=== PATIENT | male | born 1990 | race Caucasian/White ===

== ENCOUNTER 2021-05-31 11:17 | Emergency (ER) | payer MEDICAID, SELFPAY ==
--- NOTE | ~2021-05-31 | XR_ITS ---
EXAMINATION: XR ANKLE, RIGHT CLINICAL INFORMATION: Pain and bruising. No injury COMPARISON: None TECHNIQUE: AP, lateral, and mortise views of the right ankle. FINDINGS: The bones and soft tissues are normal. No fracture. Alignment is anatomic. Joint spaces are maintained. There is a small to moderate-sized retrocalcaneal enthesophyte. No joint effusion. XR/XR ankle RT min 3V IMPRESSION: Small to moderate-sized retrocalcaneal enthesophyte. No acute fracture seen.
[2021-05-31 11:21] VITALS: BP 149/69; PULSE 113; RESP 18; TEMP 37; O2SAT 98; BMI 33.9
--- NOTE | 2021-05-31 12:39 | ED.LOWEXIN ---
HPI - Extremity Injury (Lower) General Chief Complaint: Extremity Injury, Lower Stated Complaint: rt ankle pain & swelling Time Seen by Provider: 05/31/21 12:17 Source: patient Mode of arrival: ambulatory Limitations: no limitations History of Present Illness HPI Narrative: 30-year-old male is here today for complaining of right ankle swelling and pain. Patient denies any injury. Patient was placed on hydrochlorothiazide for bilateral lower extremity edema about 6 months ago. He was wearing compression stockings that were put on by the staff at his primary care provider today. Patient reports that he is having hard time walking and bear weight to his right leg. Reports redness and swelling. Patient reports that he had similar symptoms 8 years ago to the same ankle and he was diagnosed with gout. Patient denies any other symptoms. MD complaint: other (Ankle pain and swelling without injury) Severity: similar to previous episodes (Similar episode 8 years ago gout flare up) Related Data Previous Rx's Medication Instructions Recorded cephalexin 500 mg capsule 500 mg PO QID 7 Days #28 cap 05/31/21 doxycycline hyclate 100 mg capsule 100 mg PO BID #14 cap 05/31/21 lisinopril 10 mg tablet 10 mg PO DAILY #10 tab 05/31/21 oxycodone 5 mg tablet 5 mg PO Q4-6H PRN #10 tab 05/31/21 prednisone 20 mg tablet 60 mg PO DAILY 5 Days #15 tab 05/31/21 Allergies Allergy/AdvReac Type Severity Reaction Status Date / Time No Known Allergies Allergy Verified 05/31/21 11:20 Review of Systems Review of Systems: Constitutional : No Weight loss, No Fever, No Chills, No Night Sweats, No Fatigue, No Malaise ENT/Mouth : No Hearing loss, No Ear Pain, No Nasal Congestion, No Sinus Pain, No Hoarseness, No sore throat, No Rhinorrhea, No Swallowing Difficulty Eyes: No Eye Pain, No Swelling, No Redness, No Foreign Body, No Discharge, No Vision Changes Cardiovascular : No Chest Pain, No SOB, No Dyspnea on Exertion, No Orthopnea, No Edema, No Palpitations Respiratory : No Cough, No Sputum, No Wheezing, No Smoke Exposure, No Dyspnea Gastrointestinal : No Nausea, No Vomiting, No Diarrhea, No Constipation, No abdominal Pain, No Hematochezia, No Melena Genitourinary : no irregular bleeding, No Dysuria, No Urinary Frequency, No Hematuria, No Urinary Incontinence, No Urgency, No Flank Pain, No Urinary Flow Changes, No Hesitancy Musculoskeletal : joint pain (right ankle) No Myalgias, Joint Swelling (right ankle swelling and redness) Skin : No Skin Lesions, No rash Neuro : No Weakness, No Numbness, No Paresthesias, No Loss of Consciousness, No Dizziness, No Headache Yes all other systems are reviewed and are negative PMFSH Past Medical History Medical History (Updated 05/31/21 @ 14:01 by Briana Gilliam [facility]) HTN (hypertension) Social History Social History Advance Directives: No Advance Directives Information Provided: No Physical Exam Vital Signs: Vital Signs: Last Vital Signs Temp 98.6 F 05/31/21 11:21 Pulse 113 H 05/31/21 11:21 Resp 18 05/31/21 11:21 BP 149/69 H 05/31/21 11:21 Pulse Ox 98 05/31/21 11:21 Body Mass Index 33.9 Const: General: healthy appearing, no acute distress and well developed Nutritional Appearance: well nourished Orientation/consciousness: patient oriented x3 HENMT: Head: Yes normal to inspection, Yes normocephalic and Yes atraumatic Ears: hearing grossly normal bilaterally Neck: Neck: Yes normal visual inspection, Yes full ROM and Yes trachea midline Thyroid: Thyroid normal Resp: Effort & Inspection: normal respiratory effort Auscultation: clear to auscultation bilaterally Cardio: Rate: regular rate Rhythm: regular rhythm GI: Inspection: Yes normal to inspection and No distended Skin: General skin exam: elasticity normal, turgor normal and dry skin Neuro: General: patient oriented x3 Extrem: Right upper extremity: normal to inspection and normal capillary refill Left upper extremity: normal to inspection, full ROM and normal capillary refill Right lower extremity: normal capillary refill, edema (Ankle) and ankle Details: tenderness, swelling, edema and warmth Course Course Course Narrative: 30-year-old male is here today for complaining of right ankle pain and swelling. Six months ago patient was placed on hydrochlorothiazide for bilateral lower extremity edema. History of gout in the past to the same ankle about 8 years ago. Right ankle swollen tender to touch. Will x-ray, medicated with prednisone and oxycodone. Most likely gout however will rule out septic joint. Patient should stop his hydrochlorothiazide. Reevaluation(s) Reevaluation #1: X-ray negative for osteomyelitis or any fracture. Will send patient home with prednisone and pain management as well as antibiotic. I will send him home with 10 days worth of TONG-inhibitor and he will follow up with his PCP for further management of his lower extremity edema. MDM - Extremity Injury (Lower) Imaging Data Right ankle x-ray: Radiologist's impression: FINDINGS: The bones and soft tissues are normal. No fracture. Alignment is anatomic. Joint spaces are maintained. There is a small to moderate-sized retrocalcaneal enthesophyte. No joint effusion.? Discharge Plan Discharge Clinical Impression: Gout attack Qualifiers: Gout site: ankle Gout etiology: drug-induced Laterality: right Qualified Code(s): M10.271 - Drug-induced gout, right ankle and foot Cellulitis Qualifiers: Site of cellulitis: extremity Site of cellulitis of extremity: lower extremity Laterality: right Qualified Code(s): L03.115 - Cellulitis of right lower limb Patient Disposition: Home, Self-Care Instructions: Cellulitis (ED), Low Purine Diet (ED), Gout (ED) Additional Instructions: You were seen here today for right ankle pain and swelling. You have been taking medication that most likely increased uric acid levels in your blood that caused swelling to your joint. Please take prednisone as directed as well as the antibiotic. Please stop taking hydrochlorothiazide you may start taking lisinopril however you should have your kidney function test done to make sure that you can continue taking that medication to treat your lower extremity edema Prescriptions: New doxycycline hyclate 100 mg capsule 100 mg PO BID Qty: 14 RF: 0 cephalexin 500 mg capsule 500 mg PO QID 7 Days Qty: 28 RF: 0 prednisone 20 mg tablet 60 mg PO DAILY 5 Days Qty: 15 RF: 0 oxycodone 5 mg tablet 5 mg PO Q4-6H PRN (Reason: pain) Qty: 10 RF: 0 lisinopril 10 mg tablet 10 mg PO DAILY Qty: 10 RF: 0 Referrals: Name,MD Ochoa [Primary Care Provider] - 2 days Stand Alone Forms: Work/School Release Interventions: ED Discharge Assessment Last Done: 05/31/21 14:28 Discharge Date/Time: 05/31/21 14:28
[2021-05-31] MEDS: oxyCODONE HCl Immed Release 5 MG TABLET PO (13:19)
[2021-05-31] MEDS: predniSONE 20 MG TABLET 60 MG PO (13:19)
[2021-05-31] MEDS: cephALEXin 500 MG CAPSULE PO (14:08)
== END 2021-05-31 14:28 | disposition home or self-care (01) ==
PROVIDERS: Emergency Provider Emergency Medicine; PCP Internal Medicine Geriatric Medicine
DX: L03.115 Cellulitis of right lower limb (principal); M10.271 Drug-induced gout, right ankle and foot; M25.471 Effusion, right ankle; Z79.899 Other long term (current) drug therapy
CPT/HCPCS: 73610; 99283

== ENCOUNTER 2025-03-25 11:26 | Outpatient (REF) | payer MEDICAID, SELFPAY ==
--- OUTSIDE RECORDS SUMMARY | 2025-03-25 11:57 | XMS_ITS | Encounter Summary ---
Author Organization [facility] Address [address] [place] [address] Phone Care Team Providers Care Travel Med Surg Rn Name Role Phone Kiana Morfin MD Primary Care Provider Encounter Details Date Type Department Care Team (Late st Contact Info) Description 05/01/2017 Conversion Encounter [facility] [place] [address] [place] [address] Social History Tobacco Use Types Packs/Day Years Used Date Smoking Tobacco: Never Assessed Sex and Gender Information Value Date Recorded Sex Assigned at Not on file Legal Sex Male 4:26 PM EDT Gender Identity Not on file Sexual Orientation Not on file documented as of this encounter Plan of Treatment Not on file documented as of this encounter Visit Diagnoses Not on filedocumented in this encounter Care Teams Travel Med Surg Rn Relationship Specialty Start Date End Date Kiana Morfin MD [address] [place] [address] PCP - General 04/25/17 10/30/22 documented as of this encounter
--- OUTSIDE RECORDS SUMMARY | 2025-03-25 11:57 | XMS_ITS | Clinical Summary ---
Author Organization [facility] Address [address] [place] [address] Phone Care Team Providers Care Supervisor Machine Setter Name Role Phone Physician, No Pcp Primary Care Provider Unavaila ble Allergies No known active allergies Medications No known medications Active Problems No known active problems Encounters Date Type Department Care Team Description 12/25/2024 9:51 AM EDT - 12/25/2024 2:10 PM EDT Emergency [facility] Emergency [address] [place] [address] Acute pharyngitis due to infectious mononucleosis (Primary Dx) Discharge Disposition: Home or Self Care from Last 3 Months Social History Tobacco Use Types Packs/Day Years Used Date Smoking Tobacco: Never Assessed Sex and Gender Information Value Date Recorded Sex Assigned at Male 12/25/2024 10:10 AM EDT Legal Sex Male 10:16 AM EST Gender Identity Male 12/25/2024 10:10 AM EDT Sexual Orientation Straight 12/25/2024 10 :10 AM EDT Obstetrics History Last Filed Vital Signs Vital Sign Reading Time Taken Comments Blood Pressure 146/82 12/25/2024 11:32 AM EDT Pulse 105 12/25/2024 11:32 AM EDT Temperature 38.5 C (101.3 F) 12/25/2024 11:32 AM EDT Respiratory Rate 13 12/25/2024 11:32 AM EDT Oxygen Saturation 98% 12/25/2024 11:32 AM EDT Inhaled Oxygen Concentration - - Weight 86.2 kg (190 lb) 12/25/2024 9:55 AM EDT Height 182.9 cm (6') 12/25/2024 9:55 AM EDT Body Mass Index 25.77 12/25/2024 9:55 AM EDT Plan of Treatment Health Maintenance Due Date Last Done Comments Hepatitis A Vaccines (1 of 2 - Risk 2-dose series) 2007 Hepatitis B Vaccines (1 of 3 - 19+ 3-dose series) 2007 DTaP,Tdap,and Td Vaccines (3 - Td or Tdap) 01/25/2020 01/24/2010, 05/06/2000 Cholesterol Screening (Lipid Panel) 08/13/2022 HIV Screening 08/13/2022 Hepatitis C Screening 08/13/2022 Social Influencers of Health Screening 08/13/2022 COVID-19 Vaccine (1 - 2023-2 5 season) 2024 Influenza Vaccine (#1) 2025 9, 07/28/1996 Hypertension/CHF/CAD Annual BMP Blood Test 12/25/2025 12/25/2024 Depression Screening 02/14/2026 02/14/2025 MMR Vaccines Completed 05/06/2000 HIB Vaccines Aged Out No longer eligi ble based on patient's age to complete this topic HPV Vaccines Aged Out No longer eligi ble based on patient's age to complete this topic IPV Vaccines Aged Out No longer eligi ble based on patient's age to complete this topic Meningococcal ACWY Vaccine Aged Out N o longer eligible based on patient's age to complete this topic Meningococcal B Vaccine Aged Out No l onger eligible based on patient's age to complete this topic Pneumococcal Vaccine: Pediatrics (0 to 5 Years) and At-Risk Patients (6 to 49 Years) Aged Out No longer eligible b ased on patient's age to complete this topic RSV Immunization Patients Under 20 months Aged Out No longer eligible b ased on patient's age to complete this topic Varicella Vaccines Aged Out No longer eligible based on patient's age to complete this topic Procedures Procedure Name Priority Date/Time Associated Diagnosis Comments CT NECK SOFT TISSUE W CONTRAST STAT 12/25/2024 11:19 AM EDT MONONUCLEOSIS SCREEN STAT 12/25/2024 10:21 AM EDT CULTURE THROAT STAT 12/25/2024 10:17 AM EDT [id number], RSV, FLU A AND B QUALITATIVE RT-PCR, INTERNAL LAB STAT 12/25/2024 10:17 AM EDT RAPID STREP A SCREEN STAT 12/25/2024 10:17 AM EDT MANUAL DIFFERENTIAL - SYSMEX WAM STAT 12/25/2024 10:15 AM EDT CBC WITH AUTO DIFFERENTIAL STAT 12/25/2024 10:15 AM EDT TYPE AND SCREEN STAT 12/25/2024 10:15 AM EDT COMPREHENSIVE METABOLIC PANEL STAT 12/25/2024 10:15 AM EDT CBC AND DIFFERENTIAL STAT 12/25/2024 10:15 AM EDT from Last 3 Months Results * CT Neck Soft Tissue w Contrast (12/25/2024 11:19 AM EDT) Anatomical Region Laterality Modality Head and Neck Computed Tomogra phy 12/25/2024 11:2 5 AM EDT Impressions 12/25/2024 11:34 AM EDT 1. Enlarged and edematous appearance of the adenoids and tonsillar pillars. There is an ill-defined subcentimeter low-attenuation area in the left tonsillar pillar which could represent a focus of phlegmonous change, but no discrete/drainable abscess. 2. Left greater than right cervical and supraclavicular lymphadenopathy, likely reactive but nonspecific. 3. Patchy confluent and groundglass opacity in the right upper lobe of the lung suggestive of an infectious or inflammatory process. 4. Irregular hypoattenuating left thyroid nodule. Recommend further evaluation with thyroid ultrasound on a nonemergent basis. -------- FINAL REPORT -------- Dictated By: Evaristo De León Dictated Date: 12/25/2024 11:25 ET Assigned Physician: Evaristo De León Reviewed and Electronically Signed By: Evaristo De León Signed Date: 12/25/2024 11:34 ET Workstation ID: [id number] Transcribed By: Self Edit Transcribed Date: 12/25/2024 11:25 ET Narrative 12/25/2024 11:34 AM EDT PROCEDURE: Contrast enhanced CT of the neck. HISTORY: sore throat, r/o peritonsillar abscess, retropharyngeal abscess. TECHNIQUE: CT of the neck with coronal and sagittal reformats. IV CONTRAST DOSE: 90 mL ISOVUE-370. Dose length product: 368 mGy-cm. COMPARISON: None. FINDINGS: The visualized portions of the brain are normal. Orbits are normal. The paranasal sinuses are clear. The anterior clinoids are pneumatized and communicate with the sphenoid sinuses. The mastoids and middle ear spaces are clear. The skull base foramina are normal. The parotid and submandibular glands are normal. Irregular low-attenuation left thyroid nodule which could be better evaluated with ultrasound. The mucosal surfaces of the neck are normal. Layering debris in the oropharynx. Enlarged edematous appearance of the adenoids and of the tonsillar pillars. 6 mm ill-defined low-attenuation area in the left tonsillar pillar which could represent a focus of phlegmonous change, but there is no discrete rim-enhancing abscess. No retropharyngeal abscess. There are multiple enlarged cervical chain nodes, left greater than right. The largest are in the jugulodigastric region and measures 16 mm short axis. Mildly enlarged left greater than right supraclavicular lymph nodes as well. No mass or fluid collection. The major arteries and veins of the neck demonstrate normal opacification following contrast administration. Mild atherosclerotic calcification at the left carotid bulb. The visualized portions of the mediastinum are normal. There is patchy confluent and groundglass opacity at the right lung apex. 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 No suspicious bony lesion. Procedure Note Evaristo De León MD - 12/25/2024 PROCEDURE: Contrast enhanced CT of the neck. HISTORY: sore throat, r/o peritonsillar abscess, retropharyngealabscess. TECHNIQUE: CT of the neck with coronal and sagittal reformats. IV CONTRAST DOSE: 90 mL ISOVUE-370. Dose length product: 368 mGy-cm. COMPARISON: None. FINDINGS: The visualized portions of the brain are normal. Orbits are normal. The paranasal sinuses are clear. The anterior clinoids are pneumatizedand communicate with the sphenoid sinuses. The mastoids and middle earspaces are clear. The skull base foramina are normal. The parotid and submandibular glands are normal. Irregularlow-attenuation left thyroid nodule which could be better evaluated withultrasound. The mucosal surfaces of the neck are normal. Layering debris in theoropharynx. Enlarged edematous appearance of the adenoids and of thetonsillar pillars. 6 mm ill-defined low-attenuation area in the lefttonsillar pillar which could represent a focus of phlegmonous change, butthere is no discrete rim-enhancing abscess. No retropharyngeal abscess. There are multiple enlarged cervical chain nodes, left greater than right.The largest are in the jugulodigastric region and measures 16 mm shortaxis. Mildly enlarged left greater than right supraclavicular lymphnodes as well. No mass or fluid collection. The major arteries and veins of the neck demonstrate normal opacificationfollowing contrast administration. Mild atherosclerotic calcification atthe left carotid bulb. The visualized portions of the mediastinum are normal. There is patchyconfluent and groundglass opacity at the right lung apex. 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 No suspicious bony lesion. IMPRESSION: 1. Enlarged and edematous appearance of the adenoids and tonsillarpillars. There is an ill-defined subcentimeter low-attenuation area inthe left tonsillar pillar which could represent a focus of phlegmonouschange, but no discrete/drainable abscess. 2. Left greater than right cervical and supraclavicular lymphadenopathy,likely reactive but nonspecific. 3. Patchy confluent and groundglass opacity in the right upper lobe ofthe lung suggestive of an infectious or inflammatory process. 4. Irregular hypoattenuating left thyroid nodule. Recommend furtherevaluation with thyroid ultrasound on a nonemergent basis. -------- FINAL REPORT -------- Dictated By: Evaristo De León Dictated Date: 12/25/2024 11:25 ET Assigned Physician: Evaristo De León Reviewed and Electronically Signed By: Evaristo De León Signed Date: 12/25/2024 11:34 ET Workstation ID: [id number] Transcribed By: Self Edit Transcribed Date: 12/25/2024 11:25 ET us [facility] IMG CT PROCEDURES Final Resul t * (ABNORMAL) Mononucleosis screen (12/25/2024 10:21 AM EDT) [facility] Monospot Positive(A ) Negative 12/25/2024 11:26 AM EDT [facility] Blood Venous blood specimen / Unknown Venipuncture / Unknown 12/25/2024 10:21 AM EDT 12/25/2024 10:28 AM EDT us [facility] LAB BLOOD ORDERABLES Final Re sult [facility] [address] [place] [address], * [id number], RSV, Influenza A and B qualitative RT-PCR (12/25/2024 10:17 AM EDT) [facility] Influenza A PCR Not Detected Not Detected LAB MICROBIOLOGY METHOD 12/25/2024 11:40 AM EDT [facility] Influenza B PCR Not Detected Not Detected LAB MICROBIOLOGY METHOD 12/25/2024 11:40 AM EDT [facility] RSV PCR Not Detected Not Detected LAB MICROBIOLOGY METHOD 12/25/2024 11:40 AM EDT [facility] SARS COV-2 Not Detected Not Detected LAB MICROBIOLOGY METHOD 12/25/2024 11:40 AM EDT [facility] Swab Both anterior nares / Unknown Non-blood Collection / Unknown 12/25/2024 10:17 AM EDT 12/25/2024 10:28 AM EDT Narrative [facility] - 12/25/2024 11:40 AM EDT Disclaimer: Testing was performed using the [employer] GeneXpert Xpress SARS-CoV-2 _Flu_RSV PLUS PCR assay. The manner in which this information is used to guide patient care is the responsibility of the healthcare provider. Results should be correlated with the clinical history, epidemiological data, and other data available to the clinician evaluating the patient. Negative results do not preclude infection. This test has been authorized by the FDA under an Emergency Use Authorization (EUA). This test is only authorized for the duration of time the declaration that circumstances exist justifying the authorization of the emergency use of in vitro diagnostic tests for detection of SARS-CoV-2 virus and/or diagnosis of COVID-19 infection under section 564 (b) (1) of the Act, 21 U.S.C 360bbb-3 (b) (1), unless the authorization is terminated or revoked sooner. Reference Range: Not Detected Fact sheet for Healthcare providers can be found at https://www.fda.gov/media/887672/download. Fact sheet for Healthcare patients can be found at https://www.fda.gov/media/594426/download. [facility] LAB MICROBIOLOGY - GENERAL OR DERABLES Final Result Performing Organization Address City/[facility]/ZIP Co de Phone Number [facility] [address] [place] [address], [place] [phone] * Rapid strep A screen (12/25/2024 10:17 AM EDT) Strep A Ag Negative Negative, Invalid 12/25/2024 11:07 AM EDT [facility] Comment:Refer to Throat Cult ure. Swab Structure of anterior portion of neck / Unknown Non-blood Collection / Unknown 12/25/2024 10:17 AM EDT 12/25/2024 10:28 AM EDT [facility] LAB MICROBIOLOGY - GENERAL OR DERABLES Final Result Performing Organization Address [facility]/ZIP Co de Phone Number [facility] [address] [place] [address], [place] [phone] * (ABNORMAL) Culture throat (12/25/2024 10:17 AM EDT) Pathologist [facility] Culture, Throat Streptococcus beta-hemolytic Group G(A) 12/27/2024 11:34 AM EDT [facility] Comment: Susceptibility testing is not routinely performed for Beta Streptococcus isolates since these organisms are predictably sensitive to Penicillin. If the Patient is not responding, is allergic to Penicillin, or further therapeutic information is requir ed, please consult an Infectious Disease Specialist. The organism value for this result has been updated. These results have been appended to the previously preliminary verified report. Swab Structure of anterior portion of neck / Unknown Non-blood Collection / Unknown 12/25/2024 10:17 AM EDT 12/25/2024 10:28 AM EDT [facility] LAB MICROBIOLOGY - GENERAL OR DERABLES Final Result [facility] [address] [place] [address], * (ABNORMAL) Manual differential (12/25/2024 10:15 AM EDT) Pathologist [facility] Neutrophils % 57.0 % LAB HEMETOLOGY METHOD 12/25/2024 11:36 AM EDT [facility] Lymphocytes % 13.0 % LAB HEMETOLOGY METHOD 12/25/2024 11:36 AM EDT [facility] Reactive Lymphocyte 24.00 % LAB HEMETOLOGY METHOD 12/25/2024 11:36 AM EDT [facility] Monocytes % 4.0 % LAB HEMETOLOGY METHOD 12/25/2024 11:36 AM EDT [facility] Eosinophils % 0.0 % LAB HEMETOLOGY METHOD 12/25/2024 11:36 AM EDT [facility] Basophils % 1.0 % LAB HEMETOLOGY METHOD 12/25/2024 11:36 AM [facility] Neutrophils Absolute Manual 6.27 1.50 - 7.00 K/mcL LAB HEMETOLOGY METHOD 12/25/2024 11:36 AM EDT [facility] Lymphocytes Absolute 1.43 1.00 - 5.00 K/[facility] LAB HEMETOLOGY METHOD 12/25/2024 11:36 AM EDT [facility] Reactive Lymph Abs Manual 2.64(H) 0.00 - 0.00 lym LAB HEMETOLOGY METHOD 12/25/2024 11:36 AM EDT [facility] Monocytes Absolute Manual 0.44 0.20 - 1.00 K/[facility] LAB HEMETOLOGY METHOD 12/25/2024 11:36 AM EDT [facility] Eosinophils Absolute Manual 0.00 0.00 - 0.50 K/[facility] LAB HEMETOLOGY METHOD 12/25/2024 11:36 AM EDT [facility] Basophils Absolute Manual 0.11 0.00 - 0.20 K/[facility] LAB HEMETOLOGY METHOD 12/25/2024 11:36 AM EDT [facility] Rbc Morphology Consistent with indices Consistent with indices, Normal for LAB HEMETOLOGY METHOD 12/25/2024 11:36 AM EDT [facility] Platelet Morphology - WAM See Note(A) Normal LAB HEMETOLOGY METHOD 12/25/2024 11:36 AM EDT [facility] Comment:PLT: Normal Blood Venous blood specimen / Unknown Venipuncture / Unknown 12/25/2024 10:15 AM EDT 12/25/2024 10:28 AM EDT us [facility] LAB BLOOD ORDERABLES Final Re sult [facility] [address] [place] [address], * (ABNORMAL) CBC auto differential (12/25/2024 10:15 AM EDT) WBC 11.0(H) 4.8 - 10.8 K/mcL LAB HEMETOLOGY METHOD 12/25/2024 11:36 AM [facility] RBC 4.30(L) 4.50 - 5.50 M/mcL LAB HEMETOLOGY METHOD 12/25/2024 11:36 AM [facility] Hemoglobin 11.8(L) 13.5 - 17.5 g/dL LAB HEMETOLOGY METHOD 12/25/2024 11:36 AM [facility] Hematocrit 36.6(L) 42.0 - 54.0 % LAB HEMETOLOGY METHOD 12/25/2024 11:36 AM [facility] MCV 84.3 79.0 - 98.0 FL LAB HEMETOLOGY METHOD 12/25/2024 11:36 AM [facility] MCH 27.2 27.0 - 32.0 pcg LAB HEMETOLOGY METHOD 12/25/2024 11:36 AM [facility] MCHC 32.2 32.0 - 37.0 g/dL LAB HEMETOLOGY METHOD 12/25/2024 11:36 AM [facility] RDW 14.2 11.0 - 15.0 % LAB HEMETOLOGY METHOD 12/25/2024 11:36 AM [facility] Platelets 191 130 - 400 K/mcL LAB HEMETOLOGY METHOD 12/25/2024 11:36 AM [facility] MPV 9.0 7.0 - 11.0 FL LAB HEMETOLOGY METHOD 12/25/2024 11:36 AM [facility] NRBC 0.0 <1.0 % LAB HEMETOLOGY METHOD 12/25/2024 11:36 AM [facility] NRBC Absolute 0.00 <0.10 K/mcL LAB HEMETOLOGY METHOD 12/25/2024 11:36 AM [facility] Blood Venous blood specimen / Unknown Venipuncture / Unknown 12/25/2024 10:15 AM EDT 12/25/2024 10:28 AM EDT us [facility] LAB BLOOD ORDERABLES Final Re sult Performing Organization Address [facility]/ZIP Co de Phone Number [facility] [address] [place] [address], [place] [phone] * Type and screen (12/25/2024 10:15 AM EDT) Pathologist [facility] ABO Group B 12/25/2024 11:25 AM EDT [facility] Rh Type Positive 12/25/2024 11:25 AM EDT [facility] Antibody Screen Negative 12/25/2024 11:25 AM EDT [facility] Blood Venous blood specimen / Unknown Venipuncture / Unknown 12/25/2024 10:15 AM EDT 12/25/2024 10:28 AM EDT us [facility] LAB BLOOD BANK TEST ORDERABLE S Final Result Performing Organization Address [facility] de Phone Number [facility] [address] [place] [address], [place] [phone] * (ABNORMAL) Comprehensive metabolic panel (12/25/2024 10:15 AM EDT) Pathologist [facility] Sodium 137 133 - 145 mmol/L LAB CHEMISTRY METHOD 12/25/2024 10:58 AM EDT [facility] Potassium 4.1 3.5 - 5.5 mmol/L LAB CHEMISTRY METHOD 12/25/2024 10:58 AM EDT [facility] Chloride 102 96 - 110 mmol/L LAB CHEMISTRY METHOD 12/25/2024 10:58 AM EDT [facility] CO2 30 21 - 32 mmol/L LAB CHEMISTRY METHOD 12/25/2024 10:58 AM [facility] Anion Gap 5 3 - 11 LAB CHEMISTRY METHOD 12/25/2024 10:58 AM [facility] Glucose 97 70 - 100 mg/dL LAB CHEMISTRY METHOD 12/25/2024 10:58 AM [facility] BUN 17 5 - 25 mg/dL LAB CHEMISTRY METHOD 12/25/2024 10:58 AM [facility] Creatinine 0.78 0.70 - 1.30 mg/dL LAB CHEMISTRY METHOD 12/25/2024 10:58 AM [facility] eGFR 119 >=60 mL/min/1. 73m2 LAB CHEMISTRY METHOD 12/25/2024 10:58 AM [facility] Comment:Calculation based on the Chronic Kidney Disease Epidemiology Collaboration (CKD-EPI) equation refit without adjustment for race. BUN/Creatinine Ratio 21.8 LAB CHEMISTRY METHOD 12/25/2024 10:58 AM [facility] Calcium 9.4 8.5 - 10.5 mg/dL LAB CHEMISTRY METHOD 12/25/2024 10:58 AM [facility] AST (SGOT) 96(H) 10 - 42 unit/L LAB CHEMISTRY METHOD 12/25/2024 10:58 AM [facility] ALT (SGPT) 116(H) 10 - 60 unit/L LAB CHEMISTRY METHOD 12/25/2024 10:58 AM [facility] Alkaline Phosphatase 297(H) 42 - 121 unit/L LAB CHEMISTRY METHOD 12/25/2024 10:58 AM [facility] Total Protein 7.3 6.0 - 8.0 g/dL LAB CHEMISTRY METHOD 12/25/2024 10:58 AM [facility] Albumin 3.5 3.2 - 5.0 g/dL LAB CHEMISTRY METHOD 12/25/2024 10:58 AM EDT [facility] Total Bilirubin 0.4 0.0 - 1.4 mg/dL LAB CHEMISTRY METHOD 12/25/2024 10:58 AM EDT [facility] Blood Venous blood specimen / Unknown Venipuncture / Unknown 12/25/2024 10:15 AM EDT 12/25/2024 10:28 AM EDT us [facility] LAB BLOOD ORDERABLES Final Re sult [facility] [address] [place] [address], [place] [phone] from Last 3 Months Insurance MEDICAID - [place] Care Teams Supervisor Machine Setter Relationship Specialty Start Date End Date Physician, No Pcp PCP - General 12/25/24
--- OUTSIDE RECORDS SUMMARY | 2025-03-25 11:57 | XMS_ITS | Encounter Summary ---
Author Organization [employer] Address [address] [place] [address] [address] [place] [address] Care Team Providers Care Tafe Registrar Name Role Phone Milton HammondsP Primary Care Provider Holley Guadarrama LENS MOLDER Primary Care Provider [phone] Neto Cruz AGNP Primary Care Provider Taylor Salazar LENS MOLDER Primary Care Provider [phone] Jojo Rae NP Primary Care Provider [phone] Encounter Details Date Type Department Care Team (Late st Contact Info) Description 10/21/2022 Telephone [facility] [address] [place] [address] Milton Hammonds FNP Social History Tobacco Use Types Packs/Day Years Used Date Smoking Tobacco: Every Day Cigarettes Smokeless Tobacco: Never Alcohol Use Standard Drinks/Week Comments Never 0 (1 standard drink = 0.6 oz pur e alcohol) Depression Answer Date Recorded Patient Health Questionnaire-9 Score 0 10/11/2022 Depression Answer Date Recorded Patient Health Questionnaire-2 Score 0 10/11/2022 Sex and Gender Information Value Date Recorded Sex Assigned at Male 07/15/2022 10:35 AM EDT Legal Sex Male 10:35 AM EDT Gender Identity Male 07/15/2022 10:35 AM EDT Sexual Orientation Straight 07/15/2022 10 :35 AM EDT COVID-19 Exposure Response Date Recorded In the last 10 days, have yo u been in contact with someone who was confirmed or suspected to have Coronavirus/COVID-19? No / Unsure 10/11/2022 12:57 PM EST documented as of this encounter Plan of Treatment Upcoming Encounters Date Type Department Care Team (Late st Contact Info) Description 04/11/2025 1:30 PM EDT Office Visit [facility] [address] [place] [address] Jojo Rae NP [address] [place] [address] documented as of this encounter Visit Diagnoses Not on filedocumented in this encounter Additional Health Concerns Assessment Noted Time PHQ-9 Depression Total Score: 0 10/11/19 1:13 PM EST documented as of this encounter Care Teams Tafe Registrar Relationship Specialty Start Date End Date Milton Hammonds FNP PCP - General Family Medicine 10/11/22 11/11/22 Holley Perez FNP PCP - General Family Medicine 11/12/22 02/06/23 Neto Cruz AGNP PCP - General Family Medicine 02/07/23 05/21/23 Taylor Gauthier FNP [address] [place] [id number] PCP - General Family Medicine 05/22/23 03/08/24 Jojo Rae NP [address] [place] [id number] PCP - General Family Medicine 03/09/24 documented as of this encounter
== END 2025-03-25 11:27 | disposition home or self-care (01) ==
LOC: HO.HHCL 11:26
PROVIDERS: PCP Nurse Practitioner; Visit Provider Nurse Practitioner
DX: E04.1 Nontoxic single thyroid nodule (principal)
CPT/HCPCS: 36415; 84443; 84480

== ENCOUNTER 2025-04-26 12:49 | Outpatient (REF) | payer MEDICAID, SELFPAY ==
--- NOTE | ~2025-04-26 | US_ITS ---
EXAMINATION: US THYROID HISTORY: incidental finding of thyroid nodule TECHNIQUE: Real-time grayscale ultrasound imaging was performed and images were reviewed. COMPARISON: There are no prior studies available for comparison. FINDINGS: SIZE: The right thyroid lobe measures 2.6 x 2.6 x 1.7 cm. The left thyroid lobe measures 5.2 x 1.8 x 1.2 cm. The isthmus measures 5 mm. FLOW: Flow to the gland is normal. ECHOGENICITY: The echotexture of the gland is homogeneous. NODULES: A single nodule is identified on the left as described below: Nodule #: 1 Location: Midportion of the left thyroid lobe measuring 1.8 x 1.4 x 1.3 cm. Shape: Taller than wide (3 points) Margins: Smooth (0 points) Echotexture: Hypoechoic (2 points) Composition: Mixed (1 point) Calcifications: None (0 points) Total points: 6 TIRADS: TR4: Moderately suspicious. There are numerous prominent lymph nodes bilaterally: Right level III node measuring 3.5 x 0.4 x 1.3 cm. Right level III node measuring 1.5 x 0.3 x 1.2 cm. Right level II node measuring 2.8 x 0.5 x 2.0 cm. Left level III node measuring 1.9 x 0.5 x 0.9 cm. Left level III node measuring 1.7 x 0.4 x 1.1 cm. US/US thyroid IMPRESSION: 1. Moderately suspicious nodule in the midportion of the left thyroid lobe as described above. According to ACR Ti RADS guidelines below, ultrasound-guided fine-needle aspiration is recommended. 2. Bilateral cervical lymphadenopathy as described. Clinical correlation is recommended. ACR TI-RADS Guidelines TR1 (0 points): Benign. No follow-up or biopsy required TR2 (2 points): Not Suspicious. No biopsy or follow up indicated TR3 (3 points): Mildly Suspicious. FNA if >= 2.5 cm, Follow if >= 1.5 cm TR4 (4-6 points): Moderately Suspicious. FNA if >= 1.5 cm, Follow if >= 1.0 cm TR5 (>=7 points): Highly Suspicious. FNA if >= 1.0 cm, Follow if >= 0.5 cm Electronically signed by: Joss Teixeira MD 04/26/2025 01:58 PM EDT
--- OUTSIDE RECORDS SUMMARY | 2025-04-26 13:31 | XMS_ITS | Clinical Summary ---
Author Organization [facility] Address [address] [place] [address] Phone Care Team Providers Care Chief Station Engineer Name Role Phone Physician, No Pcp Primary Care Provider Unavaila ble Allergies No known active allergies Medications No known medications Active Problems No known active problems Social History Tobacco Use Types Packs/Day Years [...] Vaccine (1 - 2023-2 5 season) 2024 Depression Screening 09/15/2024 Influenza Vaccine (#1) 2025 9, 07/28/1996 Hypertension/CHF/CAD Annual BMP Blood Test 12/25/2025 12/25/2024 MMR Vaccines Completed 05/06/2000 HIB Vaccines Aged [...] Procedure Name Priority Date/Time Associated Diagnosis Comments COMPREHENSIVE METABOLIC PANEL STAT 12/25/2024 10:15 AM EDT from Last 3 Months or Most Recently Relevant to Health Maintenance Results * (ABNORMAL) Comprehensive metabolic panel (12/25/2024 10:15 AM EDT) Sodium 137 133 - 145 mmol/L LAB CHEMISTRY METHOD 12/25/2024 10:58 AM EDT [facility] Potassium 4.1 3.5 - 5.5 mmol/L LAB CHEMISTRY METHOD 12/25[facility]24 [facility] Chloride 102 96 - 110 mmol/L LAB CHEMISTRY METHOD 12/25/2024 10:58 AM [facility] CO2 30 21 - 32 mmol/L LAB CHEMISTRY METHOD 12/25/2024 10:58 AM EDT [facility] Anion Gap 5 3 - 11 LAB CHEMISTRY METHOD 12/25/2024 10:58 AM [facility] Glucose 97 70 - 100 mg/dL LAB CHEMISTRY METHOD 12/25/2024 10:58 AM [facility] BUN 17 5 - 25 mg/dL LAB CHEMISTRY METHOD 12/25/2024 10:58 AM [facility] Creatinine 0.78 0.70 - 1.30 mg/dL LAB CHEMISTRY METHOD 12/25/2024 10:58 AM [facility] eGFR 119 >=60 mL/min/1. 73m2 LAB CHEMISTRY METHOD 12/25/2024 10:58 AM [facility] Comment:Calculation based on the Chronic Kidney Disease Epidemiology Collaboration (CKD-EPI) equation refit without adjustment for race. BUN/Creatinine Ratio 21.8 LAB CHEMISTRY METHOD 12/25/2024 10:58 AM [facility] Calcium 9.4 8.5 - 10.5 mg/dL LAB CHEMISTRY METHOD 12/25/2024 10:58 AM [facility] AST (SGOT) 96(H) 10 - 42 unit/L LAB CHEMISTRY METHOD 12/25/2024 10:58 AM [facility] ALT (SGPT) 116(H) 10 - 60 unit/L LAB CHEMISTRY METHOD 12/25/2024 10:58 AM [facility] Alkaline Phosphatase 297(H) 42 - 121 unit/L LAB CHEMISTRY METHOD 12/25/2024 10:58 AM [facility] Total Protein 7.3 6.0 - 8.0 g/dL LAB CHEMISTRY METHOD 12/25/2024 10:58 AM [facility] Albumin 3.5 3.2 - 5.0 g/dL LAB CHEMISTRY METHOD 12/25/2024 10:58 AM [facility] Total Bilirubin 0.4 0.0 - 1.4 mg/dL LAB CHEMISTRY METHOD 12/25/2024 10:58 AM EDT [facility] Blood Venous blood specimen / Unknown Venipuncture / Unknown 12/25/2024 10:15 AM EDT 12/25/2024 10:28 AM EDT us Caro NELSON LAB BLOOD ORDERABLES Final Re sult [facility] ([facility] [address] [place] [address], from Last 3 Months or Most Recently Relevant to Health Maintenance Insurance MEDICAID - [place] Care Teams Chief Station Engineer Relationship Specialty Start Date End Date Physician, No Pcp PCP - General 12/25/24
--- OUTSIDE RECORDS SUMMARY | 2025-04-26 13:31 | XMS_ITS | Clinical Summary ---
Author Organization [employer] Address [address] [facility] 7[address] [place] [address] Care Team Providers Care Construction Tech Name Role Phone Jojo Rae NP Primary Care Provider [phone] Allergies No known active allergies Medications hydrOXYzine pamoate (Vistaril) 25 MG capsuleIndicati ons:Anxiety Take 1 capsule (25 mg) by mouth every 8 (eight) hours if needed for anxiety for up to 30 doses. 30 capsule 12/24/2022 Active cloNIDine (Catapres) 0.1 MG tablet Take 0.1 mg by mouth if needed each day (anxiety). Active methadone (Dolophine) 0.1 mg/mL solution Take 100 mg by mouth Once per day. 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 Opioid abuse 11/18/2018 Pilonidal cyst with abscess 11/18/2018 Encounters Date Type Department Care Team Description 04/24/2025 Results Follow-Up [facility] MEDICINE [address] [place] [phone] Jojo Rae NP TSH W/Reflex to FT4, T3, Total 04/22/2025 Telephone [facility] MEDICINE [address] [place] [phone] Jojo Rae NP Referral 04/21/2025 Telephone [facility] MEDICINE [address] [place] [address] Melly Blackwell [place] october recall 04/11/2025 1:30 PM EDT Office Visit [facility] MEDICINE [address] [place] [phone] Jojo Rae NP Encounter to establish care with new provider (Primary Dx); Overweight; Dietary counseling; Exercise counseling; Thyroid nodule; Routine screening for STI (sexually transmitted infection); Skin lesion 04/11/2025 Travel 04/08/[address] [address] Virginia Evans [place] Chart Prep 03/21/[address] [address] Jojo Rae NP requesting call back 03/17/[address] [address] Jojo Rae NP 02/14/2025 3:30 PM EDT Office Visit [address] [address] Jojo Rae NP Thyroid nodule (Primary Dx) 02/14/2025 Travel from Last 3 Months Immunizations Immunization Administration Dates Next Due Influenza, IIV3, injectable 07/13/1999, 6 MMR 05/06/2000 TD (adult), 2 Lf tetanus tox oid, preservative free, adsorbed 05/06/2000 Tdap 01/24/2010 Family History Medical History Relation Name Comments Cancer Maternal Grandfather Diabetes Maternal Grandfather Heart disease Maternal Grandfather Diabetes Maternal Grandmother Diabetes Mother Heart disease Mother Hypertension Mother Cancer Other 1st cousin Relation Name Status Comments Maternal Grandfather Maternal Grandmother Mother Other 1st cousin Social History Tobacco Use Types Packs/Day Years Used Date Smoking Tobacco: Every Day Cigarettes Passive Smoke Exposure: Never Smokeless Tobacco: Never Tobacco Cessation:Ready to Q uit: Not Asked; Counseling Given: Not Answered Alcohol Use Standard Drinks/Week Comments Never 0 (1 standard drink = 0.6 oz pur e alcohol) Depression Answer Date Recorded Patient Health Questionnaire-9 Score 16 02/14/2025 Patient Health Questionnaire-9 Score 16 02/14/2025 Last PHQ-9: Questionnaire Data Not on file 0 02/14/2025 Housing Stability Answer Date Recorded What is your housing situation today? I do not have housing (Staying with others, in a hotel, in a intermediate, living outside on the street, on a beach, in a car, or in a park 02/14/[address] you li ve. Do you have problems with any of the following? I am not sure 02/14/2025 Food Insecurity Answer Date Recorded Within the past 12 months, y ou worried that your food would run out before you got money to buy more: Sometimes True 2024 Within the past 12 months,th e food you bought just didn't last and you didn't have enough money to get more: Often true 02/14/2025 Transportation Answer Date Recorded In the past 12 months, has l ack of transportation kept you from medical appts, meetings, work or from getting things needed for daily living? Yes, it has kept me from medical appointments or getting medications. 02/14/2025 Utilities Answer Date Recorded In the past 12 months, has t he electric, gas, oil or water company threatened to shut off services in your home? I am not sure 02/14/2025 Depression Answer Date Recorded Patient Health Questionnaire-2 Score 2 02/14/2025 Internet Access Answer Date Recorded Internet Access Q1 No 02/14/2025 Internet Access Q2 My internet/Wi-Fi ac cess is not consistent or reliable 02/14/2025 Sex and Gender Information Value Date Recorded Sex Assigned at Male 07/15/2022 10:35 AM EDT Legal Sex Male 10:35 AM EDT Gender Identity Male 07/15/2022 10:35 AM EDT Sexual Orientation Straight 07/15/2022 10 :35 AM EDT Last Filed Vital Signs Vital Sign Reading Time Taken Comments Blood Pressure 130/80 04/11/2025 1:25 PM EDT Pulse 82 04/11/2025 1:25 PM EDT Temperature 37.1 C (98.7 F) 04/11/2025 1:25 PM EDT Respiratory Rate 21 04/11/2025 1:25 PM EDT Oxygen Saturation 98% 04/11/2025 1:25 PM EDT Inhaled Oxygen Concentration - - Weight 98.5 kg (217 lb 3.2 oz) 04/11/2025 1:25 P M EDT Height 182.9 cm (6') 04/11/2025 1:25 PM EDT Body Mass Index 29.46 04/11/2025 1:25 PM EDT Plan of Treatment Upcoming Encounters Date Type Department Care Team ([facility] st Contact Info) Description 07/13/2025 2:30 PM EDT Office Visit [facility] MEDICINE [address] [place] [address] Jojo Rae NP [address] [place] [address] Health Maintenance Due Date Last Done Comments HIV Screening 1988 Lipid Panel 1988 Family Planning (PISQ) 2003 HPV Vaccines (1 - Male 3-dos e series) 2003 Hepatitis C Screening 2006 Hepatitis B Vaccines (1 of 3 - 19+ 3-dose series) 2007 Pneumococcal Vaccine: Pediatrics (0 to 5 Years) and At-Risk Patients (6 to 49) Years (1 of 2 - PCV) 2007 DTaP/Tdap/Td Vaccines (3 - T d or Tdap) 01/25/2020 01/24/2010, 05/06/2000 COVID-19 Vaccine (4 - 2023-2 5 season) 2024 09/12/2021, 12/19/2020, 11/28/2020 Influenza Vaccine (#1) 2025 9, 07/28/1996 Depression Monitoring 08/16/2025 02/14/2025 , 02/14/2025 Disability Screening 02/14/2026 02/14/2025 SDOH Screening 02/14/2026 02/14/2025 Alcohol/Substance Use Screening 04/11/2026 04/11/2025 Tobacco Screening 04/24/2026 04/24/2025 Zoster Vaccines (1 of 2) 2038 RSV Patients and Patients Aged 60 years or older (1 - 1-dose 75+ series) 2063 HIB Vaccines Aged Out No longer eligi ble based on patient's age to complete this topic Hepatitis A Vaccines Aged Out No long er eligible based on patient's age to complete this topic IPV Vaccines Aged Out No longer eligi ble based on patient's age to complete this topic Meningococcal B Vaccine Aged Out No l onger eligible based on patient's age to complete this topic Meningococcal Vaccine Aged Out No silvestre bandar eligible based on patient's age to complete this topic RSV under 20 months Aged Out No longe r eligible based on patient's age to complete this topic Rotavirus Vaccines Aged Out No longer eligible based on patient's age to complete this topic Procedures Procedure Name Priority Date/Time Associated Diagnosis Comments T3, TOTAL Routine 03/25/2025 11:32 AM EDT Thyroid nodule TSH W/REFLEX TO FT4 Routine 03/25/2025 1 1:32 AM EDT Thyroid nodule from Last 3 Months Results * TSH W/Reflex to FT4 (03/25/2025 11:32 AM EDT) TSH reflex Free T4 0.84 0.32 - 4.0 uIU/mL [facility] Blood Venous blood specimen / Unknown 03/25/2025 11:32 AM EDT 03/25/2025 2:00 PM EDT [facility] LAB BLOOD ORDERABLES Final Resu lt Performing Organization Address [facility]/ZIP Co de Phone Number [facility] [address] [place] [phone] * T3, Total (03/25/2025 11:32 AM EDT) T3, Total 96 76 - 181 ng/dL [facility] Comment:THIS TEST WAS PERFOR MED AT:[facility] [address] [phone] ELISE MD Blood Venous blood specimen / Unknown 03/25/2025 11:32 AM EDT 03/25/2025 2:00 PM EDT [facility] [employer] LAB BLOOD ORDERABLES Final Resu lt Performing Organization Address City/[facility]/ZIP Co de Phone Number [facility] [address] [place] [phone] from Last 3 Months Insurance [facility] C3 HSN FULL Care Teams Construction Tech Relationship Specialty Start Date End Date Jojo Rae NP [address] [place] [phone] PCP - General Family Medicine 03/09/24
--- OUTSIDE RECORDS SUMMARY | 2025-04-26 13:31 | XMS_ITS | Encounter Summary ---
Author Organization [facility] Address [address] [place] [address] Phone Care Team Providers Care Coffee Bar Attendant Name Role Phone Kiana Morfin MD Primary Care Provider [phone] Encounter Details Date Type Department Care Team (Late st Contact Info) Description 05/01/2017 Conversion Encounter [facility] [address] [place] [address] Social History Tobacco Use Types Packs/Day Years [...] on filedocumented in this encounter Care Teams Coffee Bar Attendant Relationship Specialty Start Date End Date Kiana Morfin MD [address] [place] [address] PCP - General 04/25/17 10/30/22 documented as of this encounter
== END 2025-04-26 12:50 | disposition home or self-care (01) ==
LOC: HO.US 12:49
PROVIDERS: PCP Nurse Practitioner; Visit Provider Nurse Practitioner
DX: E04.1 Nontoxic single thyroid nodule (principal)
CPT/HCPCS: 76536

== ENCOUNTER → 2025-04-26 12:51 | Outpatient (BNV) | payer MEDICAID, SELFPAY | PROVIDERS: PCP Nurse Practitioner; Visit Provider Radiology Diagnostic Radiology | DX: E04.1 Nontoxic single thyroid nodule (principal) | CPT/HCPCS: 76536 ==

== ENCOUNTER 2025-05-13 13:27 | Outpatient (REF) | payer MEDICAID, SELFPAY ==
--- OUTSIDE RECORDS SUMMARY | 2025-05-13 13:40 | XMS_ITS | Encounter Summary ---
Author Organization [employer] Address [address] [facility] [address] [place] [address] Care Team Providers Care Video Game Creator Name Role Phone Jojo Rae NP Primary Care Provider [phone] Reason for Visit * Reason Onset Date Comments Referral 04/22/2025 Encounter Details Date Type Department Care Team ([facility] st Contact Info) Description 04/22/2025 Telephone [facility] MEDICINE [address] [place], [place] [phone] Jojo Rae NP [address] [place] [address] Referral Social History Tobacco Use Types Packs/Day Years Used Date Smoking Tobacco: Every Day Cigarettes Passive Smoke Exposure: Never Smokeless Tobacco: Never Alcohol Use Standard Drinks/Week [...] with others, in a hotel, in a fdc, living outside on the street, on a [...] Orientation Straight 07/15/2022 10 :35 AM EDT documented as of this encounter Miscellaneous Notes * Telephone Encounter - Geovanna Guaman - 04/22/2025 12:18 PM EDT TC from patient requesting a referral to [facility] for Dr. Oakes. . . documented in this encounter Plan of Treatment Upcoming Encounters Date Type Department Care Team ([facility] st Contact Info) Description 07/13/2025 2:30 PM EDT Office Visit [facility] MEDICINE [address] [place] [address] Jojo Rae NP [address] [place] [address] documented as of this encounter Visit Diagnoses Not on filedocumented in this encounter Additional Health Concerns Assessment Noted Time PHQ-9 Depression Total Score: 16 025 4:42 PM EDT documented as of this encounter Care Teams Video Game Creator Relationship Specialty Start Date End Date Jojo Rae NP [address] [place] [address] PCP - General Family Medicine 03/09/24 documented as of this encounter
--- OUTSIDE RECORDS SUMMARY | 2025-05-13 13:40 | XMS_ITS | Encounter Summary ---
Author Organization [employer] Address [address] [place] [address] 7[address] [place] [address] Care Team Providers Care Teacher Cclc Name Role Phone Jojo Rae UTILITY AIDE Primary Care Provider [phone] Encounter Details Date Type Department Care Team (Late st Contact Info) Description 04/24/2025 Results Follow-Up [facility] MEDICINE [address] [place], [place] [phone] Jojo Rae NP [address] [place] [address] TSH W/Reflex to FT4, T3, Total Social History Tobacco Use Types Packs/Day Years [...] AM EDT documented as of this encounter Plan of Treatment Upcoming Encounters Date Type Department Care Team (Late st Contact Info) Description 07/13/2025 2:30 PM EDT Office Visit [facility] MEDICINE [address] [place] [address] Jojo Rae NP [address] [place] [address] documented as of this encounter Visit Diagnoses Not on filedocumented in this encounter Additional Health Concerns Assessment Noted Time PHQ-9 Depression Total Score: 16 025 4:42 PM EDT documented as of this encounter Care Teams Teacher Cclc Relationship Specialty Start Date End Date Jojo Rae NP [address] [place] [address] PCP - General Family Medicine 03/09/24 documented as of this encounter
--- OUTSIDE RECORDS SUMMARY | 2025-05-13 13:40 | XMS_ITS | Clinical Summary ---
Author Organization [facility] Address [address] [place] [phone] Phone Care Team Providers Care Bill Adjuster Name Role Phone Unavailable Primary Care Provider Unavailabl e Immunizations Immunization Administration Dates Next Due Influenza Split 07/13/1999,07/28/1996 Influenza, injectable, trivalent 07/13/1999,07/16 MMR 05/06/2000 Td (adult) (MBL), 2 Lf tetanus toxoid, PF, adsor bed 05/06/2000 Family History Relation Name Status Comments Father Father: unknown Mother Mother: Hyperte nsion, post tramatic stress depression bipolar, Sleep apnea, Elevated cholesterol, lazy eye, ADD/ADHD, Migraines, Asthma Social History Tobacco Use Types Packs/Day Years Used Date Smoking Tobacco: Never Assessed Sex and Gender Information Value Date Recorded Sex Assigned at Not on file Legal Sex Male 4:26 PM EDT Gender Identity Not on file Sexual Orientation Not on file Plan of Treatment Health Maintenance Due Date Last Done Comments DTaP,Tdap,and Td Vaccines (2 - Tdap) 05/07/2000 05/06/2000 Varicella Vaccines (1 of 2 - 13+ 2-dose series) 2001 Hepatitis B Vaccines (1 of 3 - 19+ 3-dose series) 2007 HPV Vaccines (1 - 3-dose SCDM series) 2015 COVID-19 Vaccine (1 - 2023- season) 2024 Influenza Vaccines (#1) 2025 07/13/19 99, 07/13/1999, 07/28/1996, Additional history exists MMR Vaccines Completed 05/06/2000 HIB Vaccines Aged Out No longer eligi ble based on patient's age to complete this topic Hepatitis A Vaccines Aged Out No long er eligible based on patient's age to complete this topic IPV Vaccines Aged Out No longer eligi ble based on patient's age to complete this topic Men B Vaccine Aged Out No longer elig ible based on patient's age to complete this topic Meningococcal Vaccine Aged Out No silvestre bandar eligible based on patient's age to complete this topic Pneumococcal Vaccine Aged Out No long er eligible based on patient's age to complete this topic
--- OUTSIDE RECORDS SUMMARY | 2025-05-13 13:40 | XMS_ITS | Clinical Summary ---
Author Organization [facility] Address [address] [place] [address] Phone Care Team Providers Care Personalized Living Manager Nurse Name Role Phone Physician, No Pcp Primary [...] LAB CHEMISTRY METHOD 12/25/2024 10:58 AM EDT [facility] Potassium 4.1 3.5 - 5.5 mmol/L LAB CHEMISTRY METHOD 12/[facility]24 [facility] Chlor[facility] 102 96 - 110 mmol/L LAB CHEMISTRY METHOD 12/25/2024 10:58 AM [facility] CO2 30 21 - 32 mmol/L LAB CHEMISTRY METHOD 12/25/2024 10:58 AM EDT [facility] Anion Gap 5 3 - 11 LAB CHEMISTRY METHOD 12/25/2024 10:58 AM [facility] Glucose 97 70 - 100 mg/dL LAB CHEMISTRY METHOD 12/25/2024 10:58 AM [facility] BUN 17 5 - 25 mg/dL LAB CHEMISTRY METHOD 12/25/2024 10:58 AM [facility] Creatinine 0.78 0.70 - 1.30 mg/dL LAB CHEMISTRY METHOD 12/25/2024 10:58 AM [facility] eGFR 119 >=60 mL/min/1. 73m2 LAB CHEMISTRY METHOD 12/25/2024 10:58 AM [facility] Comment:Calculation based on the Chronic Kidney Disease Epidemiology Collaboration (CKD-EPI) equation refit without adjustment for race. BUN/Creatinine Ratio 21.8 LAB CHEMISTRY METHOD 12/25/2024 10:58 AM [facility] Calcium 9.4 8.5 - 10.5 mg/dL LAB CHEMISTRY METHOD 12/25/2024 10:58 AM [facility] AST (SGOT) 96(H) 10 - 42 unit/L LAB CHEMISTRY METHOD 12/25/2024 10:58 AM [facility] ALT (SGPT) 116(H) 10 - 60 unit/L LAB CHEMISTRY METHOD 12/25/2024 10:58 AM [facility] Alkaline Phosphatase 297(H) 42 - 121 unit/L LAB CHEMISTRY METHOD 12/25/2024 10:58 AM [facility] Total Protein 7.3 6.0 - 8.0 g/dL LAB CHEMISTRY METHOD 12/25/2024 10:58 AM [facility] Albumin 3.5 3.2 - 5.0 g/dL LAB CHEMISTRY METHOD 12/25/2024 10:58 AM [facility] Total Bilirubin 0.4 0.0 - 1.4 mg/dL LAB CHEMISTRY METHOD 12/25/2024 10:58 AM EDT [facility] Blood Venous blood specimen / Unknown Venipuncture / Unknown 12/25/2024 10:15 AM EDT 12/25/2024 10:28 AM EDT us Caro NELSON LAB BLOOD ORDERABLES Final Re sult [facility] ([facility] [address] [place] [address], from Last 3 Months or Most Recently Relevant to Health Maintenance Insurance MEDICAID - [place] Care Teams Personalized Living Manager Nurse Relationship Specialty Start Date End Date Physician, No Pcp PCP - General 12/25/24
--- OUTSIDE RECORDS SUMMARY | 2025-05-13 13:40 | XMS_ITS | Encounter Summary ---
Author Organization [employer] Address [address] [place] [address] 7t [place] [address] Care Team Providers Care Aeronautical Engineering Teacher Name Role Phone Jojo Rae NP Primary Care Provider Encounter Details Date Type Department Care Team ([facility] st Contact Info) Description 05/06/2025 Results Follow-Up [facility] MED[facility]INE [address] [place] [address] Jojo Rae NP [address] [place] [address] US Thyroid Social History Tobacco Use Types Packs/Day Years [...] with others, in a hotel, in a fpc, living outside on the street, on a [...] encounter Miscellaneous Notes * Telephone Encounter - Kristy Mejia RN - 05/10/2025 10:47 AM EDT Incoming call from pt returning RN call. Advised of message from PCP re: thyroid US and poc. Pt reports agreement with plan. * Telephone Encounter - Kristy Mejia RN - 05/10/2025 10:26 AM EDT 2nd call placed to pt to advise of message from pcp re: thyroid US results and poc/ No answer, v/m left to return call to Blue team nurses. * Telephone Encounter - Kristy Mejia RN - 05/09/2025 11:55 AM EDT T/C to pt to advise of message from PCP re: thyroid US and poc. No answer, v/m left to return call to Blue team nurses. * Telephone Encounter - Kritsy Mejia RN - 05/09/2025 11:54 AM EDT ----- Message from Jojo Rae sent at 05/06/2025 6:03 PM EDT ----- Please inform patient of thyroid US which suggests moderately suspicious nodule of the left thyroidgland. Next steps to obtain biopsy as recommended by radiologist. Order has been placed for testing. He should receive a all for scheduling. Thanks ----- Message ----- From: Interface, Ris Results In Sent: 04/26/2025 2:02 PM EDT To: Jojo Rae NP documented in this encounter Plan of Treatment Upcoming Encounters Date Type Department Care Team (Late st Contact Info) Description 07/13/2025 2:30 PM EDT Office Visit [facility] MEDICINE [address] [place] [address] Jojo Rae NP [address] [place] [address] documented as of this encounter Visit Diagnoses Not on filedocumented in this encounter Additional Health Concerns Assessment Noted Time PHQ-9 Depression Total Score: 16 025 4:42 PM EDT documented as of this encounter Care Teams Aeronautical Engineering Teacher Relationship Specialty Start Date End Date Jojo Rae NP [address] [place] [address] PCP - General Family Medicine 03/09/24 documented as of this encounter
--- OUTSIDE RECORDS SUMMARY | 2025-05-13 13:40 | XMS_ITS | Clinical Summary ---
Author Organization [employer] Address [address] [facility] 7t [place] [address] Care Team Providers Care Scale Mechanic Name Role Phone Jojo Rae NP Primary Care Provider [phone] Allergies No known active allergies Medications hydrOXYzine [...] Encounters Date Type Department Care Team Description 05/09/2025 Orders Only [facility] [address] [place] [address] Jojo Rae NP Thyroid nodule (Primary Dx) 05/06/2025 Results Follow-Up [facility] [address] [place] [address] Jojo Rae NP US Thyroid 04/24/2025 Results Follow-Up [facility] [address] [place] [address] Jojo Rae NP TSH W/Reflex to FT4, T3, Total 04/22/2025 Telephone [facility] [address] [place] [address] Jojo Rae NP Referral 04/21/[address] [address] Melly Blackwell [place] october recall 04/11/2025 1:30 PM EDT Office Visit [address] [address] Jojo Rae NP Encounter to establish care with new provider (Primary Dx); Overweight; Dietary counseling; Exercise counseling; Thyroid nodule; Routine screening for STI (sexually transmitted infection); Skin lesion 04/11/2025 Travel 04/08/[address] [address] Virginia Evans [place] Chart Prep 03/21/[address] [address] Jojo Rae NP requesting call back 03/17/[address] [address] Jojo Rae NP 02/14/2025 3:30 PM EDT Office Visit [address] [address] Jojo Rae NP Thyroid nodule (Primary Dx); Positive screening for depression on 9-item Patient Health Questionnaire (PHQ-9) 02/14/2025 Travel from Last 3 Months Immunizations [...] with others, in a hotel, in a nursing home, living outside on the street, on a [...] Description 07/13/2025 2:30 PM EDT Office Visit [facility] [address] [place] [address] Jojo Rae NP [address] [place], [place] [phone] Health Maintenance Due Date Last Done Comments [...] or Tdap) 01/25/2020 01/24/2010, 05/06/2000 COVID-19 Vaccine ( - 2023-2 5 season) 2024 09/12/2021, 12/19/2020, [...] Procedure Name Priority Date/Time Associated Diagnosis Comments US THYROID Routine 04/26/2025 1:05 PM EDT T3, TOTAL Routine 03/25/2025 11:32 AM EDT Thyroid nodule TSH W/REFLEX TO FT4 Routine 03/25/2025 1 1:32 AM EDT Thyroid nodule from Last 3 Months Results * US Thyroid (04/26/2025 1:05 PM EDT) Anatomical Region Laterality Modality Head, Neck Ultrasound 04/26/2025 1:05 PM EDT Narrative 04/26/2025 2:01 PM EDT [place] [address] Ultrasound Report Signed Patient: Patricio Saleem MR#: [id number] : 1990 Acct:[id number] Age/Sex: 34 / M ADM Date: 04/26/25 Loc: HO.US Attending Dr: Jojo Rae Ordering Physician: Jojo Rae Date of Service: 04/26/25 Procedure(s): US thyroid Accession Number(s): [id number] cc: Jojo Rae EXAMINATION: US THYROID HISTORY: incidental finding of thyroid nodule TECHNIQUE: Real-time grayscale ultrasound imaging was performed and images were reviewed. COMPARISON: There are no prior studies available for comparison. FINDINGS: SIZE: The right thyroid lobe measures 2.6 x 2.6 x 1.7 cm. The left thyroid lobe measures 5.2 x 1.8 x 1.2 cm. The isthmus measures 5 mm. FLOW: Flow to the gland is normal. ECHOGENICITY: The echotexture of the gland is homogeneous. NODULES: A single nodule is identified on the left as described below: Nodule #: 1 Location: Midportion of the left thyroid lobe measuring 1.8 x 1.4 x 1.3 cm. Shape: Taller than wide (3 points) Margins: Smooth (0 points) Echotexture: Hypoechoic (2 points) Composition: Mixed (1 point) Calcifications: None (0 points) Total points: 6 TIRADS: TR4: Moderately suspicious. There are numerous prominent lymph nodes bilaterally: Right level III node measuring 3.5 x 0.4 x 1.3 cm. Right level III node measuring 1.5 x 0.3 x 1.2 cm. Right level II node measuring 2.8 x 0.5 x 2.0 cm. Left level III node measuring 1.9 x 0.5 x 0.9 cm. Left level III node measuring 1.7 x 0.4 x 1.1 cm. US/US thyroid IMPRESSION: 1. Moderately suspicious nodule in the midportion of the left thyroid lobe as described above. According to ACR Ti RADS guidelines below, ultrasound-guided fine-needle aspiration is recommended. 2. Bilateral cervical lymphadenopathy as described. Clinical correlation is recommended. ACR TI-RADS Guidelines TR1 (0 points): Benign. No follow-up or biopsy required TR2 (2 points): Not Suspicious. No biopsy or follow up indicated TR3 (3 points): Mildly Suspicious. FNA if >= 2.5 cm, Follow if >= 1.5 cm TR4 (4-6 points): Moderately Suspicious. FNA if >= 1.5 cm, Follow if >= 1.0 cm TR5 (>=7 points): Highly Suspicious. FNA if >= 1.0 cm, Follow if >= 0.5 cm Electronically signed by: Joss Teixeira MD 04/26/2025 01:58 PM EDT Dictated By: Joss Teixeira MD Signed By: <Electronically signed by Joss Teixeira MD in OV> 04/26/25 1358 DD/ 1305 TD/TT: 04/26/25 1320 Dental Surgeon: Procedure Note [place], Image - 04/26/2025 [place] [address] Ultrasound Report Signed Patient: Patricio SaleemMR#: [id number] : 1990Acct:[id number] Age/Sex: 34 / MADM Date: 04/26/25 Loc: HO.US Attending Dr: Jojo Rae Ordering Physician: Jojo Rae Date of Service: 04/26/25 Procedure(s): US thyroid Accession Number(s): [id number] cc: Jojo Rae EXAMINATION: US THYROID HISTORY: incidental finding of thyroid nodule TECHNIQUE: Real-time grayscale ultrasound imaging was performed and images were reviewed. COMPARISON: There are no prior studies available for comparison. FINDINGS: SIZE: The right thyroid lobe measures 2.6 x 2.6 x 1.7 cm. The left thyroid lobe measures 5.2 x 1.8 x 1.2 cm. The isthmus measures 5 mm. FLOW: Flow to the gland is normal. ECHOGENICITY: The echotexture of the gland is homogeneous. NODULES: A single nodule is identified on the left as described below: Nodule #: 1 Location: Midportion of the left thyroid lobe measuring 1.8 x 1.4 x 1.3 cm. Shape: Taller than wide (3 points) Margins: Smooth (0 points) Echotexture: Hypoechoic (2 points) Composition: Mixed (1 point) Calcifications: None (0 points) Total points: 6 TIRADS: TR4: Moderately suspicious. There are numerous prominent lymph nodes bilaterally: Right level III node measuring 3.5 x 0.4 x 1.3 cm. Right level III node measuring 1.5 x 0.3 x 1.2 cm. Right level II node measuring 2.8 x 0.5 x 2.0 cm. Left level III node measuring 1.9 x 0.5 x 0.9 cm. Left level III node measuring 1.7 x 0.4 x 1.1 cm. US/US thyroid IMPRESSION: 1. Moderately suspicious nodule in the midportion of the left thyroid lobe as described above. According to ACR Ti RADS guidelines below, ultrasound-guided fine-needle aspiration is recommended. 2. Bilateral cervical lymphadenopathy as described. Clinical correlation is recommended. ACR TI-RADS Guidelines TR1 (0 points): Benign. No follow-up or biopsy required TR2 (2 points): Not Suspicious. No biopsy or follow up indicated TR3 (3 points): Mildly Suspicious. FNA if >= 2.5 cm, Follow if >= 1.5 cm TR4 (4-6 points): Moderately Suspicious. FNA if >= 1.5 cm, Follow if >= 1.0 cm TR5 (>=7 points): Highly Suspicious. FNA if >= 1.0 cm, Follow if >= 0.5 cm Electronically signed by: Joss Teixeira MD 04/26/2025 01:58 PM EDT RP Dictated By: Joss Teixeira MD Signed By: <Electronically signed by Joss Teixeira MD in OV> 04/26/25 1358 DD/ 1305 TD/TT: 04/26/25 1320 Dental Surgeon: us Jojo Rae NP IMG US PROCEDURES Edited Result - Final * TSH W/Reflex to FT4 (03/25/2025 11:32 AM EDT) TSH reflex Free T4 0.84 0.32 - 4.0 uIU/mL [facility] Blood Venous blood specimen / Unknown 03/25/2025 11:32 AM EDT 03/25/2025 2:00 PM EDT us Jojo Rae NP LAB BLOOD ORDERABLES Final Resu lt [facility] [address] [place] [phone] * T3, Total (03/25/2025 11:32 AM EDT) T3, Total 96 76 - 181 ng/dL [facility] Comment:THIS TEST WAS PERFOR MED AT:[facility] [place] [id number] ELISE MD Blood Venous blood specimen / Unknown 03/25/2025 11:32 AM EDT 03/25/2025 2:00 PM EDT Jojo Rae CUPOLA MELTER [employer] LAB BLOOD ORDERABLES Final Resu lt [facility] [address] [place] [address] [phone] from Last 3 Months Insurance [facility] C3 HSN FULL Care Teams Scale Mechanic Relationship Specialty Start Date End Date Jojo Rae NP [address] [place] [phone] PCP - General Family Medicine 03/09/24
--- OUTSIDE RECORDS SUMMARY | 2025-05-13 13:40 | XMS_ITS | Encounter Summary ---
Author Organization [employer] Address [address] [place] [address] 7t [place] [address] Care Team Providers Care Veterinarian Assistant Name Role Phone Milton HammondsP Primary Care Provider Holley Guadarrama DISTRIBUTION CLERK Primary Care Provider Neto Mcdowell AGNP Primary Care Provider Taylor Salazar DISTRIBUTION CLERK Primary Care Provider [phone] Jojo Rae NP Primary Care Provider [phone] Encounter Details Date Type Department Care Team (Late Contact Info) Description 10/21/2022 Telephone [facility] MEDICINE [address] [place] [address] Milton Hammonds FNP Social History Tobacco Use [...] Encounters Date Type Department Care Team (Late Contact Info) Description 07/13/2025 2:30 PM EDT Office Visit [facility] MEDICINE [address] [place] [address] Jojo Rae NP [address] [place] [address] documented as of this encounter Visit Diagnoses Not on filedocumented in this encounter Additional Health Concerns Assessment Noted Time PHQ-9 Depression Total Score: 0 10/11/19 1:13 PM EST documented as of this encounter Care Teams Veterinarian Assistant Relationship Specialty Start Date End Date Milton Hammonds FNP PCP - General Family Medicine 10/11/22 11/11/22 Holley Perze FNP PCP - General Family Medicine 11/12/22 02/06/23 Neto Cruz AGNP PCP - General Family Medicine 02/07/23 05/21/23 Taylor Gauthier FNP [address] [place] [address] PCP - General Family Medicine 05/22/23 03/08/24 Jojo Rae NP [address] [place] [address] PCP - General Family Medicine 03/09/24 documented as of this encounter
--- OUTSIDE RECORDS SUMMARY | 2025-05-13 13:40 | XMS_ITS | Encounter Summary ---
Author Organization [facility] Address [address] [place] [address] Phone Care Team Providers Care Virtual Office Assistant Name Role Phone Kiana Morfin MD Primary Care Provider [phone] Encounter Details Date Type Department Care Team (Late st Contact Info) Description 05/01/2017 Conversion Encounter [facility] [address] [place] [address] Social History Tobacco Use Types Packs/Day Years [...] on filedocumented in this encounter Care Teams Virtual Office Assistant Relationship Specialty Start Date End Date Kiana Morfin MD [address] [place] [address] PCP - General 04/25/17 10/30/22 documented as of this encounter
--- OUTSIDE RECORDS SUMMARY | 2025-05-13 13:40 | XMS_ITS | Encounter Summary ---
Author Organization [employer] Address [address] [facility] 7t [place] [address] Care Team Providers Care Engineering Department Chair Name Role Phone Jojo Rae NP Primary Care Provider [phone] Encounter Details Date Type Department Care Team (Late st Contact Info) Description 05/09/2025 Orders Only [facility] MEDICINE [address] [place] [address] Jojo Rae NP [address] [place] [address] Thyroid nodule (Primary Dx) Social History Tobacco Use Types Packs/Day Years [...] with others, in a hotel, in a snf, living outside on the street, on a [...] Description 07/13/2025 2:30 PM EDT Office Visit [facility] MEDICINE [address] [place] [address] Jojo Rae NP [address] [place] [address] Scheduled Orders Name Type Priority Associated Diagnoses Orde r Schedule Fine Needle Aspirate Procedures Routine Thyroid nodule Expected: 05/09/2025 (Approximate), Expires: 05/09/2026 documented as of this encounter Visit Diagnoses Diagnosis Thyroid nodule- Primary Nontoxic uninodular goiter documented in this encounter Additional Health Concerns Assessment Noted Time PHQ-9 Depression Total Score: 16 025 4:42 PM EDT documented as of this encounter Care Teams Engineering Department Chair Relationship Specialty Start Date End Date Jojo Rae NP [address] [place] [address] PCP - General Family Medicine 03/09/24 documented as of this encounter
[2025-05-13 18:51] LABS: Alanine Aminotransferase 25 U/L (0-40); Albumin Level 4.3 g/dL (3.5-5.0); Alkaline Phosphatase 115 U/L (39-117); Anion Gap 10 (12-20); Aspartate Amino Transferase 85 U/L (5-37); Blood Urea Nitrogen 17 mg/dL (9-16); Calcium 9.6 mg/dL (8.4-10.2); Carbon Dioxide 33 mmol/L (22-29); Chloride 107 mmol/L (96-108); Cholesterol 199 mg/dL (<200); Estimated Glomerular Filt Rate > 60; HDL Cholesterol 31 mg/dL (>40); Potassium 4.3 mmol/L (3.3-5.1); Sodium 146 mmol/L (135-145); Total Protein 7.1 g/dL (6.5-8.0); Triglycerides 414 mg/dL (<150)
[2025-05-14 03:28] LABS: Syphilis Screen Nonreactive (Nonreactive)
[2025-05-14 03:47] LABS: Hemoglobin A1C 101.0574 umol/L; Total Hemoglobin (HGBA1C) 3220.6007 umol/L
[2025-05-14 04:10] LABS: HBS Num1 17.73 mIU/mL (0-7.99); HBc Num1 0.06 S/CO (0.00-0.79); HBsAGNum1 0.48 S/CO (0.00-0.99); HIV Num 1 0.05 S/CO (0.00-0.99); Hepatitis B Surface Antigen Negative (Negative); ~HepC Num1 0.12 S/CO (0.00-0.79); ~Hepatitis B Surface Antibody REACTIVE (Nonreactive); ~Hepatitis C Antibody Nonreactive (Nonreactive)
== END 2025-05-13 13:28 | disposition home or self-care (01) ==
LOC: HO.HHCL 13:27
PROVIDERS: PCP Nurse Practitioner; Visit Provider Nurse Practitioner
DX: Z11.3 Encounter for screening for infections with a predominantly sexual mode of transmission (principal); Z11.59 Encounter for screening for other viral diseases; Z11.4 Encounter for screening for human immunodeficiency virus [HIV]; E66.3 Overweight
CPT/HCPCS: 36415; 80053; 80061; 83036; 86704; 86706; 86780; 86803; 87340; 87389

== ENCOUNTER 2025-06-03 10:31 | Outpatient (REF) | payer MEDICAID, SELFPAY ==
--- NOTE | ~2025-06-03 | US_ITS ---
EXAMINATION: Ultrasound-guided left thyroid nodule biopsy. CLINICAL INDICATION: Nodule. Pole left thyroid lobe. COMPARISON: Ultrasound thyroid December 2024. TECHNIQUE: Following explaining ultrasound-guided left thyroid nodule biopsy procedure, benefits and risk, a written consent was obtained. Patient was placed supine on fluoroscopy table and preliminary ultrasound imaging through the thyroid was obtained. Optimal site was selected overlying the left midpole nodule and the area marked with a marker. The marked site was cleaned and draped in usual sterile manner. 1% local Xylocaine was injected at puncture site. A 22-gauge needle attached to a syringe was inserted under ultrasound guidance into left thyroid nodule and aspiration biopsy was performed. 3 more samples were taken from the left mid pole left thyroid nodule. Postbiopsy complete hemostasis achieved. Simple Band-Aid applied postprocedure. FINDINGS/ US/US guided fine needle asp IMPRESSION: On preliminary ultrasound imaging there is is a complex nodule midpole left thyroid lobe, similar in spot size to previous study. Ultrasound-guided biopsies x 4 passes were performed from mid pole left thyroid lobe. Sample collected was sent in formaldehyde solution to the lab. Electronically signed by: Cornell Corey MD 06/09/2025 03:05 PM EDT
--- OUTSIDE RECORDS SUMMARY | 2025-06-03 11:07 | XMS_ITS | Encounter Summary ---
Author Organization [employer] Address [address] [place] [address] 7t [place] [address] Care Team Providers Care Spud Grader Name Role Phone Jojo Rae APPARATUS OPERATOR Primary Care Provider [phone] Encounter Details Date Type Department Care Team (Late st Contact Info) Description 04/24/2025 Results Follow-Up [facility] MEDICINE [address] [place], [place] [phone] Jojo Rae NP [address] [place] [address] TSH W/Reflex to FT4, T3, Total Social [...] with others, in a hotel, in a skilled nursing, living outside on the street, on a [...] Description 07/13/2025 2:30 PM EDT Office Visit [facility] MEDICINE [address] [place] [address] Jojo Rae NP [address] [place] [address] documented as of this encounter Visit Diagnoses Not on filedocumented in this encounter Additional Health Concerns Assessment Noted Time PHQ-9 Depression Total Score: 16 025 4:42 PM EDT documented as of this encounter Care Teams Spud Grader Relationship Specialty Start Date End Date Jojo Rae NP [address] [place] [address] PCP - General Family Medicine 03/09/24 documented as of this encounter
--- OUTSIDE RECORDS SUMMARY | 2025-06-03 11:07 | XMS_ITS | Clinical Summary ---
Author Organization [facility] Address [address] [place] [address] Phone Care Team Providers Care Technology Professional Name Role Phone Unavailable Primary Care Provider [...] Vaccines (1 - 3-dose SCDM series) 2015 Influenza Vaccines (#1) 2025 07/13/19 99, 07/13/1999, 07/28/1996, Additional history exists COVID-19 Vaccine ( season) 2025 MMR Vaccines Completed 05/06/2000 HIB Vaccines Aged [...]
--- OUTSIDE RECORDS SUMMARY | 2025-06-03 11:07 | XMS_ITS | Encounter Summary ---
Author Organization [employer] Address [address] [facility] 7t [place] [address] Care Team Providers Care Heel Burnisher Name Role Phone Jojo Rae NP Primary Care Provider [phone] Reason for Visit * Reason Onset Date Comments Referral 04/22/2025 Encounter Details Date Type Department Care Team ([facility] st Contact Info) Description 04/22/2025 Telephone [facility] MEDICINE [address] [place], [place] [phone] Jojo Rae NP [address] [place] [address] Referral Social History Tobacco Use Types Packs/Day [...] with others, in a hotel, in a jail, living outside on the street, on a [...] TC from patient requesting a referral to [facility] for Dr. Oakes. . . documented in this encounter Plan of Treatment Upcoming Encounters Date Type Department Care Team ([facility] st Contact Info) Description 07/13/2025 2:30 PM EDT Office Visit [facility] MEDICINE [address] [place] [address] Jojo Rae NP [address] [place] [address] documented as of this encounter Visit Diagnoses Not on filedocumented in this encounter Additional Health Concerns Assessment Noted Time PHQ-9 Depression Total Score: 16 025 4:42 PM EDT documented as of this encounter Care Teams Heel Burnisher Relationship Specialty Start Date End Date Jojo Rae NP [address] [place] [address] PCP - General Family Medicine 03/09/24 documented as of this encounter
--- OUTSIDE RECORDS SUMMARY | 2025-06-03 11:07 | XMS_ITS | Encounter Summary ---
Author Organization [employer] Address [address] [place] [address] 7t [place] [address] Care Team Providers Care Distributor Cleaner Name Role Phone Milton HammondsP Primary Care Provider Holley Guadarrama TUBE TRAILER FILLER Primary Care Provider Neto Mcdowell AGNP Primary Care Provider Taylor Salazar TUBE TRAILER FILLER Primary Care Provider [phone] Jojo Rae NP Primary Care Provider [phone] Encounter Details Date Type Department Care Team (Late Contact Info) Description 10/21/2022 Telephone [facility] MEDICINE [address] [place] [address] Milton Hammonds FNP Social History Tobacco Use [...] Description 07/13/2025 2:30 PM EDT Office Visit [facility] MEDICINE [address] [place] [address] Jojo Rae NP [address] [place] [address] documented as of this encounter Visit Diagnoses Not on filedocumented in this encounter Additional Health Concerns Assessment Noted Time PHQ-9 Depression Total Score: 0 10/11/19 1:13 PM EST documented as of this encounter Care Teams Distributor Cleaner Relationship Specialty Start Date End Date Milton Hammonds FNP PCP - General Family Medicine 10/11/22 11/11/22 Holley Perez FNP PCP - General Family Medicine 11/12/22 02/06/23 Neto Cruz AGNP PCP - General Family Medicine 02/07/23 05/21/23 Taylor Gauthier FNP [address] [place] [address] PCP - General Family Medicine 05/22/23 03/08/24 Jojo Rae NP [address] [place] [address] PCP - General Family Medicine 03/09/24 documented as of this encounter
--- OUTSIDE RECORDS SUMMARY | 2025-06-03 11:07 | XMS_ITS | Encounter Summary ---
Author Organization [facility] Address [address] [place] [address] Phone Care Team Providers Care Access Services Librarian Name Role Phone Kiana Morfin MD Primary Care Provider Encounter Details Date Type Department Care Team (Late st Contact Info) Description 05/01/2017 Conversion Encounter [facility] [place] [address] [place] [address] Social History Tobacco Use Types Packs/Day Years [...] on filedocumented in this encounter Care Teams Access Services Librarian Relationship Specialty Start Date End Date Kiana Morfin MD [address] [place] [address] PCP - General 04/25/17 10/30/22 documented as of this encounter
--- OUTSIDE RECORDS SUMMARY | 2025-06-03 11:07 | XMS_ITS | Clinical Summary ---
Author Organization [employer] Address [address] [facility] [address] [place] [address] Care Team Providers Care Footwear Sales Representative Name Role Phone Jojo Rae NP Primary Care Provider [phone] Allergies No known active allergies Medications hydrOXYzine [...] Department Care Team Description 05/09/2025 Orders Only [facility] [address] [place] [address] Jojo Rae NP Thyroid nodule (Primary Dx) 05/06/2025 Results Follow-Up [facility] [address] [place] [address] Jojo Rae NP US Thyroid 04/24/2025 Results Follow-Up [facility] [address] [place] [address] Jojo Rae NP TSH W/Reflex to FT4, T3, Total 04/22/2025 Telephone [facility] [address] [place] [address] Jojo Rae NP Referral 04/21/[address] [address] Melly Blackwell [place] october recall 04/11/2025 1:30 PM EDT Office Visit [address] [address] Jojo Rae NP Encounter to establish care with new provider (Primary Dx); Overweight; Dietary counseling; Exercise counseling; Thyroid nodule; Routine screening for STI (sexually transmitted infection); Skin lesion 04/11/2025 Travel 04/08/[address] [address] Virginia Evans [place] Chart Prep 03/21/[address] [address] Jojo Rae NP requesting call back 03/17/[address] [address] Jojo Rae NP from Last 3 Months Immunizations Immunization Administration [...] Description 07/13/2025 2:30 PM EDT Office Visit [facility] [address] [place], [place] [phone] Jojo Rae NP [address] [place], [place] [phone] Health Maintenance Due Date Last Done Comments Family Planning (PISQ) 2003 HPV Vaccines (1 - Male 3-dos e series) 2003 Hepatitis B Vaccines (1 of 3 - 19+ 3-dose series) 2007 Pneumococcal Vaccine: Pediatrics (0 to 5 Years) and At-Risk Patients (6 to 49) Years (1 of 2 - PCV) 2007 DTaP/Tdap/Td Vaccines (3 - T d or Tdap) 01/25/2020 01/24/2010, 05/06/2000 COVID-19 Vaccine (4 - 2024-2 6 season) 2025 09/12/2021, 12/19/2020, 11/28/2020 Influenza Vaccine (#1) 2025 9, 07/28/1996 Depression Monitoring 08/16/2025 02/14/2025 , 02/14/2025 Disability Screening 02/14/2026 02/14/2025 SDOH Screening 02/14/2026 02/14/2025 Alcohol/Substance Use Screening 04/11/2026 04/11/2025 Tobacco Screening 04/24/2026 04/24/2025 Lipid Panel 05/13/2030 05/13/2025 Zoster Vaccines (1 of 2) 2038 RSV Patients and Patients Aged 60 years or older (1 - 1-dose 75+ series) 2063 HIV Screening Completed 05/13/2025 Hepatitis C Screening Completed 05/13/2025 HIB Vaccines Aged Out No longer eligi [...] Date/Time Associated Diagnosis Comments COMPREHENSIVE METABOLIC PANEL Routine 05/13/2025 1:35 PM EDT Overweight HEMOGLOBIN A1C Routine 05/13/2025 1:35 PM EDT Overweight LIPID PANEL, STANDARD Routine 05/13/2025 1:35 PM EDT Overweight SYPHILIS SCREEN Routine 05/13/2025 1:35 PM EDT Routine screening for STI (sexually transmitted infection) HIV 1/2 ANTIGEN/ANTIBODY, FOURTH GENERATION W/RFL Routine 05/13/2025 1:35 PM EDT Routine screening for STI (sexually transmitted infection) HEPATITIS C AB W/REFL TO HCV RNA, QN, PCR Routine 05/13/2025 1:35 PM EDT Routine screening for STI (sexually transmitted infection) HEPATITIS B SURFACE ANTIGEN, EIA Routine 05/13/2025 1:35 PM EDT Routine screening for STI (sexually transmitted infection) HEPATITIS B CORE AB TOTAL Routine 05/13/2025 1:35 PM EDT Routine screening for STI (sexually transmitted infection) HEPATITIS B SURFACE ANTIBODY, QUALITATIVE Routine 05/13/2025 1:35 PM EDT Routine screening for STI (sexually transmitted infection) US THYROID Routine 04/26/2025 1:05 PM EDT T3, TOTAL Routine 03/25/2025 11:32 AM EDT Thyroid nodule TSH W/REFLEX TO FT4 Routine 03/25/2025 1 1:32 AM EDT Thyroid nodule from Last 3 Months Results * Syphilis Screen (05/13/2025 1:35 PM EDT) Pathologist [facility] Syphilis Screen Nonreactive Nonreactive [facility] Blood Venous blood specimen / Unknown 05/13/2025 1:35 PM EDT 05/13/2025 5:25 PM EDT [facility] SECURITY GUARD DISPATCHER LAB BLOOD ORDERABLES Final Resu lt Performing Organization Address [facility]/ZIP Co de Phone Number [facility] [address] [place] [phone] * Hepatitis C Antibody with Reflex to HCV, RNA, Quantitative, Real-Time PCR (05/13/2025 1:35 PM EDT) [facility] Hepatitis C Antibody Nonreactive Nonreactive [facility] Comment:Antibodies to HCV no t detected; does not exclude early acuteHCV infection. Blood Venous blood specimen / Unknown 05/13/2025 1:35 PM EDT 05/13/2025 5:25 PM EDT [facility] LAB BLOOD ORDERABLES Final Resu lt Performing Organization Address [facility] Co de Phone Number [facility] [address] [place] [phone] * Hepatitis B surface antigen, EIA (05/13/2025 1:35 PM EDT) [facility] Hepatitis B Surface Ag Negative Negative [facility] Blood Venous blood specimen / Unknown 05/13/2025 1:35 PM EDT 05/13/2025 5:25 PM EDT [facility] SECURITY GUARD DISPATCHER LAB BLOOD ORDERABLES Final Resu lt Performing Organization Address [facility]/ZIP Co de Phone Number [facility] [address] [place] [phone] * Hepatitis B Core Antibody, Total (05/13/2025 1:35 PM EDT) Hepatitis B Core Antibody Nonreactive Nonreactive [facility] Blood Venous blood specimen / Unknown 05/13/2025 1:35 PM EDT 05/13/2025 5:25 PM EDT [facility] LAB BLOOD ORDERABLES Final Resu lt [facility] [address] [place] [address] [phone] * HIV-1/2 Antigen and Antibodies, Fourth Generation, with Reflexes (05/13/2025 1:35 PM EDT) HIV AB/AG Nonreactive Nonreactive [facility] Comment:HIV-1 p24 Ag and/or HIV-1/HIV-2 Ab not detected.A test result that is nonreactive does not exclude thepossibility of exposure to or infection with HIV-1 and/orHIV-2. Nonreactive results in this assay for individualswith prior exposure to HIV-1 and/or HIV-2 may be due toantigen and antibody levels that are below the limit ofdetection of this assay.The [employer] HIV Ag/Ab Combo assay result andsupplemental assay results should be interpreted inconjunction with the patient's clinical presentation,history and other laboratory results. If the results areinconsistent with clinical evidence, additional testing issuggested to confirm the result. Blood Venous blood specimen / Unknown 05/13/2025 1:35 PM EDT 05/13/2025 5:25 PM EDT [facility] LAB BLOOD ORDERABLES Final Resu lt [facility] [address] [place] [address] [phone] * Hepatitis B Surface Antibody, Qualitative (05/13/2025 1:35 PM EDT) Pathologist [facility] ~Hepatitis B Surface Antibody REACTIVE Nonreactive [facility] Comment:REACTIVE: > 11.99 mI U/mL Blood Venous blood specimen / Unknown 05/13/2025 1:35 PM EDT 05/13/2025 5:25 PM EDT [facility] SECURITY GUARD DISPATCHER LAB BLOOD ORDERABLES Final Resu lt Performing Organization Address [facility]/ZIP Co de Phone Number [facility] [address] [place] [phone] * Hemoglobin A1c (05/13/2025 1:35 PM EDT) [facility] Hemoglobin A1c 5.0 <6.0 % [facility] Comment:Hemoglobin A1C Refer ence Range Adults: 4.8 - 6.0 % Non diabetic: < 6.0 % Goal: < 7.0 %Additional Action Suggested: > 8.0 %Note: Hemoglobin A1c results are invalid for patients with abnormal amounts of HbF. Blood transfusions may impact the HbA1c concentration in the patient sample. Estimated Average Glucose 97 mg/dL [facility] Comment:eAG = Estimated ave rage glucose which is %A1C expressed asaverage glucose, using the formula of the J0S-FgiwddeWrbbamc Glucose study (ADAG), Diabetes Care, Vol.31,#8,Apr. 2007 Blood Venous blood specimen / Unknown 05/13/2025 1:35 PM EDT 05/13/2025 5:25 PM EDT Jojo Appra SECURITY GUARD DISPATCHER LAB BLOOD ORDERABLES Final Resu lt Performing Organization Address [facility]/ZIP Co de Phone Number [facility] [address] [place] [phone] [phone] * (ABNORMAL) Lipid Panel, Standard (05/13/2025 1:35 PM EDT) [facility] Triglycerides 414(H) <150 mg/dL [facility] Comment:Slight Lipemia.Tang able Triglyceride: less than 150 mg/dLBorderline High Triglyceride 150-199 mg/dLHigh Triglyceride: 200-499 mg/dLVery High Triglyceride: greater than or equal to 5OO mg/dL Cholesterol 199 <200 mg/dL [facility] Comment:Desirable Cholestero l: less than 200 mg/dLBorderline High Cholesterol: 200-239 mg/dLHigh Cholesterol: greater than 239 mg/dL LDL Cholesterol Calculated TNP <100 mg/dL [facility] Comment:Unable to calculate the LDL. The formula of Friedwald,Haines, and Maureen is only valid if the triglycerides areless than 400 mg/dl. HDL Cholesterol 31(L) >40 mg/dL [facility] Comment:Desirable HDL: great er than 40 mg/dL Note: This HDL assay may give artificially low results in patients with liver disease. Blood Venous blood specimen / Unknown 05/13/2025 1:35 PM EDT 05/13/2025 5:25 PM EDT Jojo Rae SECURITY GUARD DISPATCHER LAB BLOOD ORDERABLES Final Resu lt [facility] [address] [place] [phone] * (ABNORMAL) Comprehensive Metabolic Panel (05/13/2025 1:35 PM EDT) Sodium 146(H) 135 - 145 mmol/L [facility] Potassium 4.3 3.3 - 5.1 mmol/L [facility] Chloride 107 96 - 108 mmol/L [facility] Carbon Dioxide 33(H) 22 - 29 mmol/L [facility] Anion Gap 10(L) 12 - 20 [facility] Urea Nitrogen (BUN) 17(H) 9 - 16 mg/dL [facility] Creatinine, Serum 0.80 0.5 - 1.4 mg/dL [facility] Estimated Glomerular Filt Rate >60 [facility] Comment:Chronic Kidney Disea se: Estimated GFR < 60 mL/min/1.07b9Httchg Kidney Disease: Estimated GFR < 15 mL/min/1.73m2 Glucose 78 60 - 115 mg/dL [facility] Calcium 9.6 8.4 - 10.2 mg/dL [facility] Bilirubin, Total 0.2 0.0 - 1.0 mg/dL [facility] Aspartate Amino Transferase 85(H) 5 - 37 U/L [facility] Alanine Aminotransferase 25 0 - 40 U/L [facility] Total Protein 7.1 6.5 - 8.0 g/dL [facility] Albumin Level 4.3 3.5 - 5.0 g/dL [facility] Alkaline Phosphatase 115 39 - 117 U/L [facility] Blood Venous blood specimen / Unknown 05/13/2025 1:35 PM EDT 05/13/2025 5:25 PM EDT us Jojo Rae SECURITY GUARD DISPATCHER LAB BLOOD ORDERABLES Final Resu lt Performing Organization Address City/State/[facility] Co de Phone Number [facility] [address] [place] [phone] * US Thyroid (04/26/2025 1:05 PM EDT) Anatomical Region Laterality Modality Head, Neck Ultrasound 04/26/2025 1:05 PM EDT Narrative 04/26/2025 2:01 PM EDT [address] [address] Ultrasound Report Signed Patient: Patricio Saleem MR#: [id number] : 1990 Acct:[id number] Age/Sex: 34 / M ADM Date: 04/26/25 Loc: HO.US Attending Dr: Jojo Rae Ordering Physician: Jojo Rae Date of Service: 04/26/25 Procedure(s): US thyroid Accession Number(s): [id number] cc: Jojo Rae EXAMINATION: US THYROID HISTORY: [...] 04/26/25 1358 DD/ 1305 TD/TT: 04/26/25 1320 [employer] Press Tender: Procedure Note Donotabhishekinterpreter, Image - 04/26/2025 [place] [address] Ultrasound Report Signed Patient: Issac Saleem#: [id number] : 1990Acct:[id number] Age/Sex: 34 / MADM Date: 04/26/25 Loc: HO.US Attending Dr: Jojo Rae Ordering Physician: Jojo Rae Date of Service: 04/26/25 Procedure(s): US thyroid Accession Number(s): [id number] cc: Jojo Rae EXAMINATION: US THYROID HISTORY: [...] 04/26/25 1358 DD/ 1305 TD/TT: 04/26/25 1320 [employer] Press Tender: us Jojo Rae NP IMG US PROCEDURES Edited Result - Final * TSH W/Reflex to FT4 (03/25/2025 11:32 AM EDT) TSH reflex Free T4 0.84 0.32 - 4.0 uIU/mL [facility] Blood Venous blood specimen / Unknown 03/25/2025 11:32 AM EDT 03/25/2025 2:00 PM EDT us Jojo Rae NP LAB BLOOD ORDERABLES Final Resu lt [facility] [address] [place] [phone] * T3, Total (03/25/2025 11:32 AM EDT) T3, Total 96 76 - 181 ng/dL [facility] Comment:THIS TEST WAS PERFOR MED AT:[facility] [place] [phone] ELISE MD Blood Venous blood specimen / Unknown 03/25/2025 11:32 AM EDT 03/25/2025 2:00 PM EDT us Jojo Rae SECURITY GUARD DISPATCHER LAB BLOOD ORDERABLES Final Resu lt [facility] [address] [place] [address] [phone] from Last 3 Months Insurance [facility] C3 HSN F[employer] Care Teams Footwear Sales Representative Relationship Specialty Start Date End Date Jojo Rae NP [address] [place] [phone] PCP - General Family Medicine 03/09/24
--- OUTSIDE RECORDS SUMMARY | 2025-06-03 11:07 | XMS_ITS | Clinical Summary ---
Author Organization [facility] Address [address] [place] [address] Phone Care Team Providers Care Cell Tester Name Role Phone Physician, No Pcp Primary [...] 08/13/2022 Social Influencers of Health Screening 08/13/2022 Depression Screening 09/15/2024 COVID-19 Vaccine (2023-2 5 season) 2025 Influenza Vaccine (#1) 2025 9, 07/28/1996 Hypertension/CHF/CAD [...] LAB CHEMISTRY METHOD 12/25/2024 10:58 AM EDT [facility] Potassium 4.1 3.5 - 5.5 mmol/L LAB CHE[facility]STR[facility] Chloride 102 96 - 110 mmol/L LAB CHEMISTRY METHOD 12/25/2024 10:58 AM [facility] CO2 30 21 - 32 mmol/L LAB CHEMISTRY METHOD 12/25/2024 10:58 AM EDT [facility] Anion Gap 5 3 - 11 LAB CHEMISTRY METHOD 12/25/2024 10:58 AM [facility] Glucose 97 70 - 100 mg/dL LAB CHEMISTRY METHOD 12/25/2024 10:58 AM [facility] BUN 17 5 - 25 mg/dL LAB CHEMISTRY METHOD 12/25/2024 10:58 AM [facility] Creatinine 0.78 0.70 - 1.30 mg/dL LAB CHEMISTRY METHOD 12/25/2024 10:58 AM [facility] eGFR 119 >=60 mL/min/1. 73m2 LAB CHEMISTRY METHOD 12/25/2024 10:58 AM [facility] Comment:Calculation based on the Chronic Kidney Disease Epidemiology Collaboration (CKD-EPI) equation refit without adjustment for race. BUN/Creatinine Ratio 21.8 LAB CHEMISTRY METHOD 12/25/2024 10:58 AM [facility] Calcium 9.4 8.5 - 10.5 mg/dL LAB CHEMISTRY METHOD 12/25/2024 10:58 AM [facility] AST (SGOT) 96(H) 10 - 42 unit/L LAB CHEMISTRY METHOD 12/25/2024 10:58 AM [facility] ALT (SGPT) 116(H) 10 - 60 unit/L LAB CHEMISTRY METHOD 12/25/2024 10:58 AM [facility] Alkaline Phosphatase 297(H) 42 - 121 unit/L LAB CHEMISTRY METHOD 12/25/2024 10:58 AM [facility] Total Protein 7.3 6.0 - 8.0 g/dL LAB CHEMISTRY METHOD 12/25/2024 10:58 AM [facility] Albumin 3.5 3.2 - 5.0 g/dL LAB CHEMISTRY METHOD 12/25/2024 10:58 AM [facility] Total Bilirubin 0.4 0.0 - 1.4 mg/dL LAB CHEMISTRY METHOD 12/25/2024 10:58 AM EDT [facility] Blood Venous blood specimen / Unknown Venipuncture / Unknown 12/25/2024 10:15 AM EDT 12/25/2024 10:28 AM EDT us Caro NELSON LAB BLOOD ORDERABLES Final Re sult [facility] [address] [place] [address], from Last 3 Months or Most Recently Relevant to Health Maintenance Insurance MEDICAID - [place] Care Teams Cell Tester Relationship Specialty Start Date End Date Physician, No Pcp PCP - General 12/25/24
[2025-06-03] MEDS: Lidocaine HCl 1 % MPF 5 ML VIAL SUBCUT (11:51)
== END 2025-06-03 10:32 | disposition home or self-care (01) ==
LOC: HO.US 10:31
PROVIDERS: PCP Nurse Practitioner; Visit Provider Nurse Practitioner
DX: E04.1 Nontoxic single thyroid nodule (principal)
CPT/HCPCS: 10005; 88173; 88305; J2003

== ENCOUNTER → 2025-06-03 10:50 | Outpatient (BNV) | payer MEDICAID, SELFPAY | PROVIDERS: PCP Nurse Practitioner; Visit Provider Radiology Diagnostic Radiology | DX: E04.1 Nontoxic single thyroid nodule (principal) | CPT/HCPCS: 10005 ==